=== PATIENT | female | born 1965 | race Caucasian/White ===

== ENCOUNTER 2024-12-31 08:24 | Outpatient (REF) | payer MEDICARE, MEDICAID, SELFPAY ==
--- NOTE | ~2024-12-31 | XR_ITS ---
CLINICAL HISTORY: Bilateral knee pain Three-view right knee Three-view left knee Comparison: None provided Findings: Bones intact. No dislocations. No significant arthritic change or erosions. There is a small left knee effusion. There is no right knee effusion. No radiopaque foreign body. IMPRESSION: 1. Mild narrowing of the bilateral medial knee compartments and the lateral aspects of the bilateral patellofemoral joints. There are tricompartmental osteophytes bilaterally, most pronounced within the patellofemoral joints. Line mild osteoarthritis of the bilateral knees. 2. Small left knee effusion. This document has been electronically signed by: Erendira Camacho MD on 12/31/2024 14:16:09
--- OUTSIDE RECORDS SUMMARY | 2025-01-01 08:40 | XMS_ITS | Clinical Summary ---
Author Organization [facility] Address [address] [facility] [address] [place] [address] Phone Care Team Providers Care Entry Level Manufacturing Engineer Name Role Phone Sobeida Newby Primary Care [...] B [place] & B [employer] MEDICARE PART A & [place] & B [facility] Care Teams Entry Level Manufacturing Engineer Relationship Specialty Start Date End Date Sobeida Newby PA [address] [phone] PCP - General Riprap Placing Supervisor 03/04/20 Additional Source Comments The information contained in this document represents components of the legal health record. It is not the complete legal health record.[facility]
--- OUTSIDE RECORDS SUMMARY | 2025-01-01 08:40 | XMS_ITS | Clinical Summary ---
Author Organization [facility] [address] [facility] Address [address] [place] [address] Phone Care Team Providers Care Oil Operator Name Role Phone Sobeida Newby Primary Care Provider [phone] Allergies Active Allergy Reactions Criticality Noted Date [...] Documents on File Type Date Recorded Patient Computer Security Manager Expl anation Health Care Decision (hx) 04/10/2013 AD SIGALA DIRECTIVE Health Care Decision (hx) 04/10/2013 AD SIGALA DIRECTIVE Health Care Decision (hx) 04/10/2013 AD SIGALA DIRECTIVE Health Care Decision (hx) 04/10/2013 AD SIGALA DIRECTIVE Health Care Decision (hx) 04/10/2013 AD SIGALA DIRECTIVE Health Care Decision (hx) 04/10/2013 AD SIGALA DIRECTIVE Care Teams Oil Operator Relationship Specialty Start Date End Date Sobeida Newby PA [address] [facility] [address] [place], [place] PCP - General Physician Tool Turret Lathe Set Up Operator 02/27/24
== END 2024-12-31 08:25 | disposition home or self-care (01) ==
LOC: HO.HOSX 08:24
PROVIDERS: Visit Provider Orthopaedic Surgery
DX: M17.0 Bilateral primary osteoarthritis of knee (principal); M25.561 Pain in right knee; M25.562 Pain in left knee
CPT/HCPCS: 73562; 99202

== ENCOUNTER 2024-12-31 13:38 | Outpatient (AMB) | payer MEDICARE, MEDICAID, SELFPAY ==
--- NOTE | 2024-12-31 13:54 | MHC.OFFVIS ---
Vital Signs 12/31/24 13:56 Height 5 ft 5 in Weight 163 lb BMI 27.1 Intake Visit Reasons: Bilateral knee pain Intake Note: Love is a 59 year old woman who presents with complaints of progressively worsening bilateral knee pains. She describes her pains as sharp in nature. Her pains have gotten worse over the last few years in spite of continued non operative treatments. She has had cortisone injections in the past which gave her minimal relief. The patient states that she was recently diagnosed with glaucoma and was instructed not to have further cortisone injections. She has not had a viscosupplementation injection. She has failed the last 3 months of conservative treatment which has included Tylenol, anti-inflammatory medicines, a home exercise program and physical therapy exercises. At this point her bilateral knee pains are interfering with her activities of daily living and her ability to sleep well through the night. The patient wishes to hold off on surgery if at all possible. Allergies pregabalin (From Lyrica) Allergy (Intermediate, Verified 12/31/24 14:01) Depression cipro Allergy (Severe, Uncoded 12/31/24 14:01) Fainting Medication List - Last Reconciled 12/31/24 by Barron Rosario MD atorvastatin 20 mg PO DAILY bupropion HCl SR 200 mg PO DAILY cetirizine 10 mg PO DAILY levothyroxine 88 mcg PO DAILY lorazepam 0.5 mg PO DAILY PRN meloxicam 15 mg PO DAILY trazodone 50 - 150 mg PO BEDTIME PRN valacyclovir 1,000 mg PO Q12H venlafaxine ER 150 mg PO QAM [facility] Medical History (Updated 01/01/25 @ 08:09 by Barron Rosario MD) PAT (paroxysmal atrial tachycardia) Surgical History (Updated 12/31/24 @ 14:03 by SARKIS Lux) H/O cardiac ablation Hx of carpal tunnel repair Social History (Updated 12/31/24 @ 14:02 by SARKIS Lux) Current occupational status: disabled Current occupation: right hand Physical Exam Vital Signs: BMI result Body Mass Index 27.1 Const Other: Well-nourished well-developed very friendly female awake alert and oriented x3 in no acute distress Extrem Other: Bilateral lower extremity examination shows good capillary refill, no skin lesions noted, normal sensation light touch Bilateral knee examination shows minimal effusions, palpable crepitus with range of motion, pain with range of motion, range of motion from -3 degrees to 115 degrees, no instability Results Reviewed Results Reviewed: X-rays of the patient's bilateral knee show joint space narrowing, subchondral sclerosis, no acute bony abnormalities Assessment & Plan Assessment & Plan (1) Bilateral knee pain: Code(s): M25.561 - Pain in right knee; M25.562 - Pain in left knee Category: Medical (2) Osteoarthritis of left knee: Code(s): M17.12 - Unilateral primary osteoarthritis, left knee Category: Medical (3) Osteoarthritis of right knee: Code(s): M17.11 - Unilateral primary osteoarthritis, right knee Category: Medical Plan Ms. Gimenez presents with bilateral knee pains due to osteoarthritis. I had a lengthy discussion with the patient regarding the treatment options. She wishes to hold off on surgery if at all possible. I agree with this plan. I will see if the patient's insurance company will cover a viscosupplementation injection, such as Durolane, for both of her knees. I will see her back once the injections are available. Feel free to call me at any time should questions regarding her orthopedic management arise. Thank you very much for asking me to see this very friendly patient. I spent 22 minutes in reviewing the patient's records and imaging studies, seeing the patient and documenting in the medical record. Orders: Orders XR Knee Florentin 3V 12/31/24 M25.561 - Pain in right knee, M25.562 - Pain in left knee Coding Level of Care Code New Pt Level 3 (99889) Complex EM visit Add On G2211 Diagnoses Bilateral knee pain M25.561; M25.562 Osteoarthritis of left knee M17.12 Osteoarthritis of right knee M17.11
[2024-12-31 13:56] VITALS: BMI 27.1
--- OUTSIDE RECORDS SUMMARY | 2024-12-31 17:15 | XMS_ITS | Clinical Summary ---
Author Organization [facility] Address [address] [facility] [address] [place] [address] Phone Care Team Providers Care Maxillofacial Prosthodontist Name Role Phone Sobeida Newby Primary Care Provi francesca Allergies Active Allergy Reactions Criticality Noted Date Comments Ciprofloxacin Lactate Syncope High 03/23/2020 Faint Codeine High 03/23/2020 Throwing up Pregabalin High 03/23/2020 Depressed Medications dextroamphetam ine-amphetamin e (ADDERALL XR) 25 MG 24 hr capsule amphetamine/dextr oamphetamine 25 mg cp24 Active buPROPion (WELLBUTRIN SR) 200 MG SR 12 hr tablet bupropion hcl sr 200 mg tb12 Active levothyroxine (SYNTHROID) 75 MCG tablet levothyroxine sodium 75 mcg tabs Active traZODone (DESYREL) 150 MG tablet trazodone hcl 100 mg tabs Active venlafaxine HCl (VENLAFAXINE ORAL) venlafaxine hcl er 150 mg cp24 Active atorvastatin (LIPITOR) 20 MG tablet atorvastatin 20 mg tablet Active Active Problems No known active problems Family History Medical History Relation Comments Glaucoma Maternal Grandmother Relation Status Comments Maternal Grandmother Social History Tobacco Use Types Packs/Day Years Used Date Smoking Tobacco: Never Smokeless Tobacco: Never Alcohol Use Standard Drinks/Week Comments Yes 0 (1 standard drink = 0.6 oz pur e alcohol) Education Answer Date Recorded Are you interested in more education? Not on abhijit e 07/13/2022 Are you concerned about learning? Not on file 07/13/2022 No 07/13/2022 No 07/13/2022 Digital Access Answer Date Recorded No 08/11/2022 No 08/11/2022 No 08/11/2022 Reliable internet access at home? Not on file 08/11/2022 Device with a working camera? Not on file Comments Unknown Sex and Gender Information Value Date Recorded Sex Assigned at Not on file Legal Sex Female 9:14 AM EST Gender Identity Not on file Sexual Orientation Not on file Plan of Treatment Health Maintenance Due Date Last Done Comments LIPID PANEL 1965 TSH LEVEL 1965 DEPRESSION SCREENING 1977 HEPATITIS C SCREENING 09/28/1983 HIV ONE-TIME SCREENING (18-65 YEARS) 09/28/1983 PAP SMEAR 1986 MAMMOGRAM 2005 COLOGUARD 2010 COLONOSCOPY 2010 COLORECTAL CANCER SCREENING 2010 FIT TEST 2010 FOBT 2010 SIGMOIDOSCOPY 2010 VIRTUAL COLONOSCOPY 2010 PNEUMOCOCCAL VACCINES (50+ years) (2 of 2 - PCV) 09/28/2015 12/21/2009 ZOSTER VACCINES (1 of 2) 09/28/2015 INFLUENZA VACCINE (#1) 2024 , 12/11/2019, 01/09/2018, Additional history exists COVID-19 VACCINE (2024- season) 2024 04/08/2021, 05/29/2020, 05/06/2020 Adult Td,Tdap Booster 05/15/2026 05/15/2016, 008 RSV VACCINE (1 - 1-dose 75+ series) 2040 HIB VACCINES Aged Out 01/02/2019 No longer eligi ble based on patient's age to complete this topic SMOKING STATUS SCREENING (Once After 26 Yrs) Completed 12/20/2021 HEPATITIS A VACCINES Aged Out No long er eligible based on patient's age to complete this topic MENINGOCOCCAL VACCINES (ACWY) Aged Out No longer eligible based on patient's age to complete this topic MENINGOCOCCAL VACCINES (B) Aged Out N o longer eligible based on patient's age to complete this topic Medical Devices Not on file Insurance MEDICARE PART A & [place] & B [employer] MEDICARE PART A & [place] & B [facility] Care Teams Maxillofacial Prosthodontist Relationship Specialty Start Date End Date Sobeida Newby PA [address] [phone] PCP - General Kitchen Utility Associate 03/04/20 Additional Source Comments The information contained in this document represents components of the legal health record. It is not the complete legal health record.[facility]
--- OUTSIDE RECORDS SUMMARY | 2024-12-31 17:15 | XMS_ITS | Patient Health Record ---
Author Organization [facility] Address [address] [facility] [address] [place] [address] Care Team Providers Care Business Process Coordinator Name Role Phone KARSTEN LENY Primary Care Provider Kat Catalan Unavailable [phone] Allergies Allergen (clinical drug ingredient) Drug/Non Drug Allergy documented on EMR Reaction Allergy Type Onset Date Status CIPROFLOXIN (uncoded) FAINT Allergy Active codeine CODEINE Unknown Drug Allergy Active Reason For Referral No Information Medications Medication SIG (Take, Route, Frequency, Duration) Notes Start Date End Date Status Ferrous Sulfate 325 (65 Fe) MG 1 tablet Orally Once a day; Duration: 30 day(s) 12/10/2014 Active Effexor XR 100MG 1 ORAL daily; Durati on: -3 Kade-MJ 01/17/2012 Active Levoxyl 75MCG 1 ORAL DAILY; Durati on: -3 Kade-MJ 05/09/2011 Active traZODone HCl 100 MG 1 tablet at bedtime Orally Once a day Active Wellbutrin XL 200MG 1 ORAL daily; Durati on: -3 Kade-MJ 01/17/2012 Active Problems Problem Type SNOMED Code ICD Code Onset Dates Problem Status W/U Status Risk Notes Problem Hypothyroidism (69000022) Unspecified hypothyroidism (244.9) Active confirmed Problem Paroxysmal tachycardia (96905792) Unspecified paroxysmal tachycardia (427.2) Active confirmed Problem Premenstrual tension syndrome (31426576) Premenstrual tension syndromes (625.4) Active confirmed Problem Irregular menstrual cycle (80346753) Irregular menstrual cycle (626.4) Active confirmed Major Plan Of Treatment Pending Test Test Name Order Date FSH, Serum 12/09/2014 CBC 12/09/2014 Ultrasound : Pelvic 12/09/2014 Insurance Providers Payer Name Payer Address Payer Phone Subscriber Number Group Number Insured Name Patient Relationship to Insured Coverage Start Date Coverage End Date [facility] [address] [place] [address] [id number] [place] CERV[employer] Self - patient is the insured Medical (General) History Medical History History ICD Code Irregular menstrual cycle 626.4 Premenstrual tension syndromes 625.4 Unspecified paroxysmal tachycardia 427.2 Unspecified hypothyroidism 244.9 Surgical History Surgery Date(Month/Year) carpal tunnel repair x 2 eye surgery as
--- OUTSIDE RECORDS SUMMARY | 2024-12-31 17:15 | XMS_ITS | Clinical Summary ---
Author Organization [facility] [address] [facility] Address [address] [place] [address] Phone Care Team Providers Care Training And Quality Manager Name Role Phone Sobeida Newby Primary Care Provider [phone] Allergies Active Allergy Reactions Criticality Noted Date Comments Ciprofloxacin-Hydrocortisone 019 Codeine 07/18/2018 Pregabalin 07/18/2018 Medications levothyroxine sodium (LEVOXYL ORAL) Take 0.75 mcg by mouth. Active atorvastatin calcium (ATORVASTATIN ORAL) Take by mouth. Active buPROPion SR (WELLBUTRIN SR) 200 mg 12 hr tablet Take 1 tablet (200 mg total) by mouth 2 (two) times a day. Active venlafaxine 150 mg 24 hr tablet Take by mouth. Active traZODone (DESYREL) 150 mg tablet Take 1 tablet (150 mg total) by mouth at bedtime. Active MULTIVITAMIN ORAL Take by mouth. Active ibuprofen (MOTRIN ORAL) Take by mouth. Active acetaminophen (TYLENOL ORAL) Take by mouth. Active dicyclomine (BENTYL) 10 mg capsuleIndication s:Irritable bowel syndrome with both constipation and diarrhea,LLQ pain Take 1 capsule (10 mg total) by mouth 4 (four) times a day if needed (abd pain). 60 capsule 11 4 03/16/20 25 Active Active Problems Problem Noted Date Diagnosed Date Hx of adenomatous colonic polyps 03/16/2024 Irritable bowel syndrome with constipation 03/16 Irritable bowel syndrome wit h both constipation and diarrhea 03/16/2024 LLQ pain 03/16/2024 Depression 07/19/2018 Hypercholesterolemia 07/19/2018 Hypothyroidism 07/19/2018 Rhinitis, allergic 07/19/2018 Family History Medical History Relation Name Comments Melanoma Father Relation Name Status Comments Father Social History Tobacco Use Types Packs/Day Years Used Date Smoking Tobacco: Former Smokeless Tobacco: Never Comments Unknown Sex and Gender Information Value Date Recorded Sex Assigned at Female 03/16/2024 8:49 AM EST Legal Sex Female 4:22 AM EST Gender Identity Female 03/16/2024 8:49 AM EST Sexual Orientation Not on file Obstetrics History Last Filed Vital Signs Vital Sign Reading Time Taken Comments Blood Pressure - - Pulse - - Temperature - - Respiratory Rate - - Oxygen Saturation - - Inhaled Oxygen Concentration - - Weight 74.4 kg (164 lb) 03/16/2024 7:44 AM EST Height 167.6 cm (5' 6 ) 03/16/2024 7:44 AM EST Body Mass Index 26.47 03/16/2024 7:44 AM EST Plan of Treatment Health Maintenance Due Date Last Done Comments Hepatitis A Vaccines (1 of 2 - Risk 2-dose series) 1984 Hepatitis B Vaccines (1 of 3 - 19+ 3-dose series) 1984 Cervical Cancer Screening: Pap Smear 1986 Pneumococcal Vaccine: 50+ Years (2 of 2 - PCV) 12/21/2010 12/21/2009 RSV Immunization Adult Patients (1 - Risk 50-74 years 1-dose series) 09/28/2015 Breast Cancer Screening 12/06/2021 12/07/2019 Zoster Vaccines (2 of 2) 03/23/2022 01/26/2022 Cholesterol Screening (Lipid Panel) 12/25/2023 HIV Screening 12/25/2023 Hepatitis C Screening 12/25/2023 Medicare Annual Wellness Visit 12/25/2023 Social Influencers of Health Screening 12/25/2023 Depression Screening 03/18/2024 COVID-19 Vaccine ( season) 2024 01/26/2022, 04/08/2021, 05/29/2020, Additional history exists Influenza Vaccine (#1) 2024 , 01/26/2022, 11/23/2020, Additional history exists DTaP,Tdap,and Td Vaccines (4 - Td or Tdap) 05/22/2032 05/22/2022, 05/15/2016, 03/18/2007 Colorectal Cancer Screening: Colonoscopy 08/26/2033 08/27/2023 HIB Vaccines Aged Out 01/02/2019 No longer eligi ble based on patient's age to complete this topic HPV Vaccines Aged Out No longer eligi ble based on patient's age to complete this topic IPV Vaccines Aged Out No longer eligi ble based on patient's age to complete this topic MMR Vaccines Aged Out No longer eligi ble based on patient's age to complete this topic Meningococcal ACWY Vaccine Aged Out N o longer eligible based on patient's age to complete this topic Meningococcal B Vaccine Aged Out No l onger eligible based on patient's age to complete this topic RSV Immunization Patients Under 20 months Aged Out No longer eligible based on patient's age to complete this topic Varicella Vaccines Aged Out No longer eligible based on patient's age to complete this topic Procedures Procedure Name Priority Date/Time Associated Diagnosis Comments COLONOSCOPY Routine 08/27/2023 3:35 PM EDT from Last 3 Months or Most Recently Relevant to Health Maintenance Results * COLONOSCOPY (08/27/2023 3:35 PM EDT) Anatomical Region Laterality Modality Endoscopy Historical Provider GI~PROCEDURE ORDERABLES F inal Result from Last 3 Months or Most Recently Relevant to Health Maintenance Insurance MEDICARE MEDICAID - [place] Advance Directives Documents on File Type Date Recorded Patient Pile Driver Operator Barge Mounted Expl anation Health Care Decision (hx) 04/10/2013 AD SIGALA DIRECTIVE Health Care Decision (hx) 04/10/2013 AD SIGALA DIRECTIVE Health Care Decision (hx) 04/10/2013 AD SIGALA DIRECTIVE Health Care Decision (hx) 04/10/2013 AD SIGALA DIRECTIVE Health Care Decision (hx) 04/10/2013 AD SIGALA DIRECTIVE Health Care Decision (hx) 04/10/2013 AD SIGALA DIRECTIVE Care Teams Training And Quality Manager Relationship Specialty Start Date End Date Sobeida Newby PA [address] [facility] [address] [place], [place] PCP - General Physician Manager Medical Device 02/27/24
== END 2024-12-31 14:18 | disposition home or self-care (01) ==
LOC: HO.HOS 13:39
PROVIDERS: Visit Provider Orthopaedic Surgery
DX: M25.561 Pain in right knee (principal); M25.562 Pain in left knee; M17.0 Bilateral primary osteoarthritis of knee
CPT/HCPCS: 99203; G2211

== ENCOUNTER → 2024-12-31 13:42 | Outpatient (BNV) | payer MEDICARE, MEDICAID, SELFPAY | PROVIDERS: Visit Provider Radiology Diagnostic Radiology | DX: M17.0 Bilateral primary osteoarthritis of knee (principal); M25.762 Osteophyte, left knee; M25.761 Osteophyte, right knee; M25.461 Effusion, right knee; M25.462 Effusion, left knee | CPT/HCPCS: 73562 ==

== ENCOUNTER 2025-01-11 11:22 | Outpatient (AMB) | payer MEDICARE, MEDICAID, SELFPAY ==
--- NOTE | 2025-01-11 11:25 | MHC.OFFVIS ---
Intake Visit Reasons: INJ B/L Durolane Intake Note: Love is a 59 year old woman who presents with complaints of progressively worsening bilateral knee pains. She describes her pains as sharp in nature. Her pains have gotten worse over the last few years in spite of continued non operative treatments. She has had cortisone injections in the past which gave her minimal relief. The patient states that she was recently diagnosed with glaucoma and was instructed not to have further cortisone injections. She has not had a viscosupplementation injection. She has failed the last 3 months of conservative treatment which has included Tylenol, anti-inflammatory medicines, a home exercise program and physical therapy exercises. At this point her bilateral knee pains are interfering with her activities of daily living and her ability to sleep well through the night. The patient wishes to hold off on surgery if at all possible. Allergies pregabalin (From Lyrica) Allergy (Intermediate, Verified 01/11/25 11:32) Depression codeine Adverse Reaction (Severe, Verified 01/11/25 11:32) Vomiting cipro Allergy (Severe, Uncoded 01/11/25 11:32) Fainting Medication List - Last Reconciled 01/11/25 by Barron Rosario MD atorvastatin 20 mg PO DAILY bupropion HCl SR 200 mg PO DAILY cetirizine 10 mg PO DAILY levothyroxine 88 mcg PO DAILY lorazepam 0.5 mg PO DAILY PRN meloxicam 15 mg PO DAILY trazodone 50 - 150 mg PO BEDTIME PRN valacyclovir 1,000 mg PO Q12H venlafaxine ER 150 mg PO QAM PFSH Medical History (Updated 01/11/25 @ 11:33 by SARKIS Bravo) Osteoarthritis of left knee Osteoarthritis of right knee PAT (paroxysmal atrial tachycardia) Surgical History (Updated 12/31/24 @ 14:03 by SARKIS Lux) H/O cardiac ablation Hx of carpal tunnel repair Social History Current occupational status: disabled Current occupation: right hand Physical Exam Const Other: Well-nourished well-developed very friendly female awake alert and oriented x3 in no acute distress Extrem Other: Bilateral knee examination shows minimal effusions, palpable crepitus with range of motion, pain with range of motion, no instability Office Procedures AMB Joint Injection/Aspiration Joint Injection/Aspiration Primary Site: right knee Prep: site was prepped using aseptic technique Injected: 60 mg of (Durolane viscosupplementation), with 4 mL of and 1% plain lidocaine Procedure: The patient tolerated the procedure well Coding 27763 - Large joint Procedure code (CPT) selection complete AMB Joint Injection/Aspiration Joint Injection/Aspiration Primary Site: left knee Prep: site was prepped using aseptic technique Injected: 60 mg of (Durolane viscosupplementation), with 4 mL of and 1% plain lidocaine Procedure: The patient tolerated the procedure well Coding 20377 - Large joint Procedure code (CPT) selection complete Results Reviewed Results Reviewed: X-rays of the patient's bilateral knees taken previously show joint space narrowing, subchondral sclerosis, no acute bony abnormalities Assessment & Plan Assessment & Plan (1) Osteoarthritis of left knee: Code(s): M17.12 - Unilateral primary osteoarthritis, left knee Category: Medical (2) Osteoarthritis of right knee: Code(s): M17.11 - Unilateral primary osteoarthritis, right knee Category: Medical Plan Ms. Gimenez presents with bilateral knee pains due to osteoarthritis. The risks and benefits of bilateral knee Durolane viscosupplementation injections were discussed at length with the patient. The patient wished to proceed. She tolerated the injections well. She will continue with her home exercise program. She will contact me prior to her follow-up appointment in 3 months should any questions or concerns arise. I spent 21 minutes in reviewing the patient's records and imaging studies, seeing the patient and documenting in the medical record. Orders: Orders AMB Joint Injection/Aspiration Today M17.12 - Unilateral primary osteoarthritis, left knee AMB Joint Injection/Aspiration Today M17.11 - Unilateral primary osteoarthritis, right knee Coding Level of Care Code Est Pt Level 3 (68174) Complex EM visit Add On G2211 Diagnoses Osteoarthritis of left knee M17.12 Osteoarthritis of right knee M17.11 CPT Codes Coding - 69053 Large joint: 27916 - Large joint ([id number]) Coding - 70197 Large joint: 77912 - Large joint ([id number])
--- OUTSIDE RECORDS SUMMARY | 2025-01-11 14:34 | XMS_ITS | Patient Health Record ---
Author Organization [facility] Address [address] [facility] [address] [place] [address] Care Team Providers Care Asbestos Shingle Roofer Name Role Phone KARSTEN LENY Primary Care Provider Kat Catalan Unavailable [phone] Allergies Allergen (clinical drug ingredient) Drug/Non Drug [...] Status W/U Status Risk Notes Problem Hypothyroidism (43519420) Unspecified hypothyroidism (244.9) Active confirmed Problem Paroxysmal tachycardia (95093476) Unspecified paroxysmal tachycardia (427.2) Active confirmed Problem Premenstrual tension syndrome (48347597) Premenstrual tension syndromes (625.4) Active confirmed Problem Irregular menstrual cycle (85175504) Irregular menstrual cycle (626.4) Active confirmed Major Plan Of Treatment Pending Test Test Name Order Date FSH, Serum 12/09/2014 CBC 12/09/2014 Ultrasound : Pelvic 12/09/2014 Insurance Providers Payer Name Payer Address Payer Phone Subscriber Number Group Number Insured Name Patient Relationship to Insured Coverage Start Date Coverage End Date [facility] [address] [place] [address] [phone] [id number] [place] [employer] Self - patient is the insured Medical (General) History Medical History History ICD Code Irregular menstrual cycle 626.4 Premenstrual tension syndromes 625.4 Unspecified paroxysmal tachycardia 427.2 Unspecified hypothyroidism 244.9 Surgical History Surgery Date(Month/Year) carpal tunnel repair x 2 eye surgery as
--- OUTSIDE RECORDS SUMMARY | 2025-01-11 14:34 | XMS_ITS | Clinical Summary ---
Author Organization [facility] [address] [facility] Address [address] [place] [address] Phone Care Team Providers Care Vice President Of Operations Name Role Phone Sobeida Newby Primary Care Provider [phone] Allergies Active Allergy Reactions Criticality Noted Date [...] Documents on File Type Date Recorded Patient [employer] Expl anation Health Care Decision (hx) 04/10/2013 AD SIGALA DIRECTIVE Health Care Decision (hx) 04/10/2013 AD SIGALA DIRECTIVE Health Care Decision (hx) 04/10/2013 AD SIGALA DIRECTIVE Health Care Decision (hx) 04/10/2013 AD SIGALA DIRECTIVE Health Care Decision (hx) 04/10/2013 AD SIGALA DIRECTIVE Health Care Decision (hx) 04/10/2013 AD SIGALA DIRECTIVE Care Teams Vice President Of Operations Relationship Specialty Start Date End Date Sobeida Newby PA [address] [facility] [address] [place], [place] PCP - General Physician Spoilage Worker 02/27/24
--- OUTSIDE RECORDS SUMMARY | 2025-01-11 14:34 | XMS_ITS | Data Portability ---
Author Organization [facility], Main Office Address [address] [facility] [address] [place] [address] Care Team Providers Care Traffic Ii Manager Name Role Phone MYRIAM VILLA Cold Roll Packer Sheet [employer] [facility] Referring Pr ovider LORENZA HIGGINS Pet Care Worker BRENDA GARCIA Video Editor [phone] ANGEL EATON Primary Care Provider REFUGIO ALMONTE Physical Therapist [phone] Assessment Encounter Date Assessment Date Assessment LastModified by Organization Details LastModified Time 01/15/2024 01/15/2024 Discussed with patient the signs/symptoms warranted for a return to office visit and/or an ER visit. Patient understood and agreed with the plan. Not available 01/15/2024 13:09:18 02/18/2024 02/18/2024 This service was provided using telemedicine. Patient consented to telephone visit Patient was located in the [facility]. Provider was located in the office. No other persons participated in the telemedicine visit except for the patient unless otherwise indicated here. Total time of visit was 28 minutes. Not available 02/18/2024 14:30:36 Plan of Treatment Reminders Order Date Submit Date Provider Last Modified By Organization Details Last Modified Time Details Appointments PE EST 2024 08:30A Lukas Eaton PACamden Not available Not available Not available Lab anapla sma phagoc ytophi lum + ehrlic hia chaffe ensis IgG panel, titer, serum 2023 024 CHRISTEN [facility] (Centralized Electronic Ordering - All Locations), Patient Can Go To The Location Of Their Choice, [id number] 02/11/2024 14:07:00 lipid panel, serum 2023 [facility]STEN [facility] (Centralized [facility] Ordering - All Locations), Patient Can Go To The Location Of Their Choice, [id number] 01/08/2024 06:09:58 CMP, serum or plasma 2023 CH[facility]STEN [facility] (Centralized Electronic Ordering - All Locations), Patient Can Go To The Location Of Their Choice, 01/08/2024 06:09:56 vitami n B12 + folate , serum or blood 2023 CH[facility]STEN [facility] (Centralized Electronic Ordering - All Locations), Patient Can Go To The Location Of Their Choice, 01/08/2024 06:09:59 TSH, ultra- sensit leeann, serum 2023 CHRISTEN [facility] ([facility]ized [facility] Ordering - All Locations), Patient Can Go To The Location Of Their Choice, 01/08/2024 06:09:59 urinal ysis, comple te 2023 [email or web address] [facility] ([facility] Ordering - All Locations), Patient Can Go To The Location Of Their Choice, 12/31/2023 08:47:38 Referral gyneco logist referr diomedes kent to schedu le 2023 [email or web address] Not available 06/22/2024 10:48:59 gyneco logist referr diomedes 2023 [email or web address] Not available 06/22/2024 10:48:59 sleep medici ne referr diomedes chou sed apneas , stop-b ang score 5. 2023 [facility], [address] [place] [address], [id number], 10/11/2023 11:49:08 Procedures None record ed. Surgeries None record ed. Imaging XR, abdome n, comple te - consti pation . 2023 aida [facility], [address] [place], [address], 03/03/2024 09:30:04 Medication Orders levoth yroxin e 88 mcg tablet 2023 024 [facility] #[id number], [address], [place], [id number], 02/18/2024 14:34:03 doxycy spears hyclat e 100 mg tablet 2023 024 [facility] #[id number], [address], [place], [id number], 02/10/2024 15:06:06 jeff ukast 10 mg tablet 2023 024 [facility] #38528, [address], [place], [id number], 02/18/2024 13:43:40 Pulmic ort Flexha ler 180 mcg/ac tuatio n breath activa angelia 2023 024 [facility] #[id number], [address], [place], [id number], 02/18/2024 13:44:19 Patient TargetsNo targets recorded. Patient Instructions Encounter Date Encounter Id Patient Instructions Last Modified By Organization Details Last Modified Time 10/01/2023 [id number] sleep apnea: car e instructions Not available 10/01/2023 16:17:17 12/24/2023 [id number] allergies: care instructions Not available 12/24/2023 10:19:36 cold sores: care instructions Not available 12/24/2023 10:19:36 insomnia: care instructions Not available 12/24/2023 10:19:36 preventing falls : care instructions Not available 12/24/2023 10:19:36 high cholesterol : care instructions Not available 12/24/2023 10:19:36 attention defici t hyperactivity disorder (ADHD) in adults: care instructions Not available 12/24/2023 10:19:36 Cervical Cancer Screening Not available 12/24/2023 10:19:36 sleep apnea: car e instructions Not available 12/24/2023 10:30:18 hypothyroidism: care instructions Not available 12/24/2023 10:19:36 blood in the urine: care instructions Not available 12/24/2023 10:46:18 01/15/2024 [id number] tick bite: care instructions Not available 01/15/2024 14:50:13 02/10/2024 [id number] Follow up if no improvement or if symptoms worsen. pmadden Not available 02/10/2024 15:21:56 02/18/2024 [id number] constipation: ca re instructions Not available 02/18/2024 14:33:53 hypothyroidism: care instructions Not available 02/18/2024 14:33:53 Reason for Referral Sleep Medicine Referral for Sleep apnea witnessed apneas, stop-bang score 5. Referring Physician: Angel Eaton Internal [facility], Encounter Date: 10/01/2023 Editorial Specialist Referral for Sc reening for malignant neoplasm of cervix Patient to schedule Referring Physician: Angel Eaton [facility], Encounter Date: 12/24/2023 Editorial Specialist Referral for Sc reening for malignant neoplasm of cervix Referring Physician: Angel Eaton Internal [facility], Encounter Date: 12/24/2023 Results Created Date Observation Date Name Description Value Unit Range Abnormal Flag Note LastModifiedBy Organization Detail LastModifiedTime 01/07/2001/08/2024 COMP. METAB OLIC PANEL (14) glucose 84 mg/dL 70-99 normal Not Available [facility] ([facility]) [address] [facility], [place], [address], 01/08/2024 06:09:56 01/07/20 24 01/08/2024 COMP. METAB OLIC PANEL (14) BUN 16 mg/dL 6-24 normal Not Available [facility] ([facility]) [address] [facility] [place], [address], 01/08/2024 06:09:56 01/07/20 24 01/08/2024 COMP. METAB OLIC PANEL (14) creatinine 0.77 mg/dL 0.57-1 .00 normal Not Available [facility] ([facility]) [address] [facility] [place], [address], 01/08/2024 06:09:56 01/07/20 24 01/08/2024 COMP. METAB OLIC PANEL (14) eGFR 89 mL/mi n/1.7 3 >59 normal Not Available [facility] ([facility]) [address] [facility], [place], [address], 01/08/2024 06:09:56 01/07/20 24 01/08/2024 COMP. METAB OLIC PANEL (14) BUN/creatini ne ratio 21 9-23 normal Not Available [facility] ([facility]) [address] [facility], [place], [address], 01/08/2024 06:09:56 01/07/20 24 01/08/2024 COMP. METAB OLIC PANEL (14) sodium 140 mmol/ L 134-14 4 normal Not Available [facility] ([facility]) [address] [facility] [place], [address], 01/08/2024 06:09:56 01/07/20 24 01/08/2024 COMP. METAB OLIC PANEL (14) potassium 3.3 mmol/ L 3.5-5. 2 below low normal Not Available [facility] ([facility]) [address] [facility] [place], [address], 01/08/2024 06:09:56 01/07/20 24 01/08/2024 COMP. METAB OLIC PANEL (14) chloride 99 mmol/ L 96-106 normal Not Available [facility] ([facility]) [address], [place], [address], 01/08/2024 06:09:56 01/07/2001/08/2024 COMP. METAB OLIC PANEL (14) carbon dioxide, total 23 mmol/ L 20-29 normal Not Available [facility] ([facility]) [address], [place], [address], 01/08/2024 06:09:56 01/07/2001/08/2024 COMP. METAB OLIC PANEL (14) calcium 9.6 mg/dL 8.7-10 .2 normal Not Available [facility] ([facility] [address] [place], [address], 01/08/2024 06:09:56 01/07/20 24 01/08/2024 COMP. METAB OLIC PANEL (14) protein, total 6.6 g/dL 6.0-8. 5 normal Not Available [facility] ([facility]) [address] [facility], [place], [address], 01/08/2024 06:09:56 01/07/2001/08/2024 COMP. METAB OLIC PANEL (14) albumin 4.6 g/dL 3.8-4. 9 normal Not Available [facility] ([facility]) [address] [facility] [place], [address], 01/08/2024 06:09:56 01/07/2001/08/2024 COMP. METAB OLIC PANEL (14) globulin, total 2.0 g/dL 1.5-4. 5 Not Available [facility] ([facility]) [address] [facility] [place], [address], 01/08/2024 06:09:56 01/07/2001/08/2024 COMP. METAB OLIC PANEL (14) bilirubin, total 0.4 mg/dL 0.0-1. 2 normal Not Available [facility] ([facility]) [address] [facility] [place], [address], 01/08/2024 06:09:56 01/07/2001/08/2024 COMP. METAB OLIC PANEL (14) alkaline phosphatase 88 IU/L 44-121 normal Not Available [facility] [address] [facility], [place], [address], 01/08/2024 06:09:56 01/07/2001/08/2024 COMP. METAB OLIC PANEL (14) AST (SGOT) 17 IU/L 0-40 normal Not Available [facility] ([facility]) [address] [facility] [place], [address], 01/08/2024 06:09:56 01/07/2001/08/2024 COMP. METAB OLIC PANEL (14) ALT (SGPT) 20 IU/L 0-32 normal Not Available [facility] ([facility]) [address] [facility], [place], [address], 01/08/2024 06:09:56 01/07/2001/08/2024 URINA LYSIS , COMPL ETE specific gravity <=1.00 5 1.005- 1.030 abnormal Not Available [facility] ([facility]) [address] [facility], [place], [address], 01/08/2024 06:09:57 01/07/2001/08/2024 URINA LYSIS , COMPL ETE pH 6.5 5.0-7. 5 normal Not Available [facility] ([facility]) [address] [facility], [place], [address], 01/08/2024 06:09:57 01/07/2001/08/2024 URINA LYSIS , COMPL ETE urine-color Yellow yellow Not Available [facility] ([facility]) [address] [facility] [place], [address], 01/08/2024 06:09:57 01/07/2001/08/2024 URINA LYSIS , COMPL ETE appearance Clear clear Not Available [facility] ([facility]) [address] [facility], [place], [address], 01/08/2024 06:09:57 01/07/2001/08/2024 URINA LYSIS , COMPL ETE WBC esterase 2+ negati ve abnormal Not Available [facility] ([facility]) [address] [facility], [place], [address], 01/08/2024 06:09:57 01/07/2001/08/2024 URINA LYSIS , COMPL ETE protein Negati ve negati ve/tra ce Not Available [facility] ([facility]) [address] [facility], [place], [address], 01/08/2024 06:09:57 01/07/2001/08/2024 URINA LYSIS , COMPL ETE glucose Negati ve negati ve Not Available [facility] ([facility]) [address] [facility], [place], [address], 01/08/2024 06:09:57 01/07/2001/08/2024 URINA LYSIS , COMPL ETE ketones Negati ve negati ve Not Available [facility] ([facility]) [address] [facility], [place], [address], 01/08/2024 06:09:57 01/07/2001/08/2024 URINA LYSIS , COMPL ETE occult blood Negati ve negati ve Not Available [facility] ([facility]) [address] [facility], [place], [address], 01/08/2024 06:09:57 01/07/2001/08/2024 URINA LYSIS , COMPL ETE bilirubin Negati ve negati ve Not Available [facility] ([facility]) [address] [facility], [place], [address], 01/08/2024 06:09:57 01/07/2001/08/2024 URINA LYSIS , COMPL ETE urobilinogen ,semi-qn 0.2 mg/dL 0.2-1. 0 normal Not Available [facility] ([facility]) [address] [facility], [place], [address], 01/08/2024 06:09:57 01/07/2001/08/2024 URINA LYSIS , COMPL ETE nitrite, urine Negati ve negati ve Not Available [facility] ([facility]) [address] [facility], [place], [address], 01/08/2024 06:09:57 01/07/2001/08/2024 URINA LYSIS , COMPL ETE microscopic examination See below: Micro scopi c was indic ated and was perfo rmed. Not Available [facility] ([facility]) [address] [facility], [place], [address], 01/08/2024 06:09:57 01/07/2001/08/2024 URINA LYSIS , COMPL ETE WBC 11-30 /hpf 0 - 5 abnormal Not Available [facility] ([facility]) [address] [facility], [place], [address], 01/08/2024 06:09:57 01/07/20 24 01/08/2024 URINA LYSIS , COMPL ETE RBC None seen /hpf 0 - 2 Not Available [facility] ([facility]) [address] [facility], [place], [address], 01/08/2024 06:09:57 01/07/2001/08/2024 URINA LYSIS , COMPL ETE epithelial cells (non renal) 0-10 /hpf 0 - 10 Not Available [facility] ([facility]) [address] [place], [address], 01/08/2024 06:09:57 01/07/20 24 01/08/2024 URINA LYSIS , COMPL ETE epithelial cells (renal) [employer]ING [employer]EM[employer] Not Available [facility] ([facility]) [address] [facility], [place], [address], 01/08/2024 06:09:57 01/07/2001/08/2024 URINA LYSIS , COMPL ETE casts None seen /lpf none seen Not Available [facility] ([facility]) [address] [facility], [place], [address], 01/08/2024 06:09:57 01/07/2001/08/2024 URINA LYSIS , COMPL ETE cast type [employer] Not Available [facility] ([facility]) [address] [facility], [place], [address], 01/08/2024 06:09:57 01/07/2001/08/2024 URINA LYSIS , COMPL ETE crystals [employer]EM[employer] Not Available [facility] ([facility]) [address] [facility], [place], [address], 01/08/2024 06:09:57 01/07/2001/08/2024 URINA LYSIS , COMPL ETE crystal type [employer]ING [employer]EM[employer] Not Available [facility] [address] [facility], [place], [address], 01/08/2024 06:09:57 01/07/2001/08/2024 URINA LYSIS , COMPL ETE mucus threads [employer] Not Available [facility] ([facility] [address] [facility], [place], [address], 01/08/2024 06:09:57 01/07/2001/08/2024 URINA LYSIS , COMPL ETE bacteria None seen none seen/f ew Not Available [facility] ([facility]) [address] [facility], [place], [address], 01/08/2024 06:09:57 01/07/20 24 01/08/2024 URINA LYSIS , COMPL ETE yeast [employer] Not Available [facility] ([facility]) [address] [facility], [place], [address], 01/08/2024 06:09:57 01/07/2001/08/2024 URINA LYSIS , COMPL ETE trichomonas [employer] Not Available [facility] ([facility] [address] [facility], [place], [address], 01/08/2024 06:09:57 01/07/2001/08/2024 URINA LYSIS , COMPL ETE comment [employer] Not Available [facility] ([facility]) [address] [facility], [place], [address], 01/08/2024 06:09:57 01/07/2001/08/2024 URINA LYSIS , COMPL ETE microscopic examination [employer] Not Available [facility] [address] [facility], [place], [address], 01/08/2024 06:09:57 01/07/2001/08/2024 LIPID PANEL WITH LDL/H DL RATIO cholesterol, total 194 mg/dL 100-19 9 normal Not Available [facility] ([facility]) [address] [facility], [place], [address], 01/08/2024 06:09:58 01/07/2001/08/2024 LIPID PANEL WITH LDL/H DL RATIO triglyceride s 112 mg/dL 0-149 normal Not Available [facility] ([facility] [address] [place], [address], 01/08/2024 06:09:58 01/07/2001/08/2024 LIPID PANEL WITH LDL/H DL RATIO HDL cholesterol 46 mg/dL >39 normal Not Available [facility] [address] [facility], [place], [address], 01/08/2024 06:09:58 01/07/20 24 01/08/2024 LIPID PANEL WITH LDL/H DL RATIO VLDL cholesterol donita 20 mg/dL 5-40 Not Available [facility]) [address] [facility], [place], [address], 01/08/2024 06:09:58 01/07/20 24 01/08/2024 LIPID PANEL WITH LDL/H DL RATIO LDL chol calc ([facility]) 128 mg/dL 0-99 above high normal Not Available [facility] ([facility]) [address] [facility], [place], [address], 01/08/2024 06:09:58 01/07/20 24 01/08/2024 LIPID PANEL WITH LDL/H DL RATIO LDL calc comment: [employer]ING [employer]EM[employer] Not Available [facility]) [address] [facility], [place], [address], 01/08/2024 06:09:58 01/07/2001/08/2024 LIPID PANEL WITH LDL/H DL RATIO LDL/HDL ratio 2.8 ratio 0.0-3. 2 LDL/H DL Ratio Men Women 1/2 Avg.R isk 1.0 1.5 Avg.R isk 3.6 3.2 2X Avg.R isk 6.2 5.0 3X Avg.R isk 8.0 6.1 Not Available [facility] ([facility]) [address] [facility], [place], [address], 01/08/2024 06:09:58 01/07/20 24 01/08/2024 VITAM IN B12 AND FOLAT E vitamin B12 589 pg/mL 232-12 45 normal Not Available [facility] ([facility]) [address] [facility], [place], [address], 01/08/2024 06:09:59 01/07/2001/08/2024 VITAM IN B12 AND FOLAT E folate (folic acid), serum >20.0 NG/mL >3.0 A serum folat e gita ntrat ion of less than 3.1 ng/mL is consi dered to repre sent clini donita defic iency . Not Available [facility] ([facility]) [address] [facility], [place], [address], 01/08/2024 06:09:59 01/07/2001/08/2024 TSH TSH 4.170 uIU/m L 0.450- 4.500 normal Not Available [facility] ([facility]) [address] [facility], [place], [address], 01/08/2024 06:09:59 02/05/2002/06/2024 POTAS SIUM, HEPAR IN PLASM A potassium, heparin plasma 3.9 mmol/ L 3.5-5. 2 Not Available [facility] ([facility]) [address] [facility], [place], [address], 02/06/2024 14:07:26 02/05/20 24 02/06/2024 MAGNE SIUM magnesium 2.3 mg/dL 1.6-2. 3 normal Not Available [facility] ([facility]) [address] [facility], [place], [address], 02/06/2024 14:07:27 02/05/2002/05/2024 TICK- BORNE DISEA SE AB PROFI LE result comments: Commen t Antib tory titer s may be negat leeann in the first 7-10 days of illne ss. A four- fold rise in IgG antib tory titer s for Babes ia micro ti, Anapl asma phago cytop hilum , and/o r Ehrli miriam chaff eensi s in paire d sampl es (acut e and conva lesce nt) suppo rts the diagn osis of babes iosis , anapl asmos is, and/o r ehrli chios is, respe ctive ly. Not Available [facility] ([facility]) [address] [facility], [place], [address], 02/11/2024 14:07:00 02/05/20 24 02/06/2024 TICK- BORNE DISEA SE AB PROFI LE lyme total antibody natalie Negati ve negati ve Lyme antib odies not detec angelia. Refle x testi ng is not indic ated. No labor atory evide nce of infec tion with B. burgd orfer i (Lyme disea se). Negat leeann resul ts may occur in patie nts recen tly infec angelia (less than or equal to 14 days) with B. burgd orfer i. If recen t infec tion is suspe cted, repea t testi ng on a new sampl e colle cted in 7 to 14 days is recom sukhwinder d. Not Available [facility] ([facility]) [address] [place], [address], 02/11/2024 14:07:00 02/05/20 24 02/07/2024 TICK- BORNE DISEA SE AB PROFI LE babesia microti IgG <1:10 neg:<1 :10 Not Available [facility] ([facility]) [address] [facility], [place], [address], 02/11/2024 14:07:00 02/05/20 24 02/07/2024 TICK- BORNE DISEA SE AB PROFI LE E. chaffeensis IgG Negati ve neg:<1 :64 Not Available [facility] ([facility]) [address] [facility], [place], [address], 02/11/2024 14:07:00 02/05/20 24 02/11/2024 TICK- BORNE DISEA SE AB PROFI LE A. phagocytophi lum IgG Negati ve neg:<1 :64 Not Available [facility] ([facility] [address] [place], [address], 02/11/2024 14:07:00 11/27/19 24 11/27/2023 home sleep study No observ ation record ed. [email or web address] [facility] [address] [facility], [place], [address], 01/30/2024 15:09:55 02/11/20 24 02/11/2024 US, duple x, pelvi s, compl ete No observ ation record ed. [email or web address] [facility] [address] [place], [address], 02/12/2024 09:33:46 02/11/20 24 02/11/2024 US, pelvi s, trans abdom inal + trans vagin al No observ ation record ed. [email or web address] [facility] [address] [place], [address], 02/12/2024 09:34:34 03/12/20 24 02/27/2024 XR, cervi donita spine No observ ation record ed. [email or web address] [facility] [address], [place], [address], Ph [phone] 03/16/2024 09:30:19 03/16/20 24 03/16/2024 XR, abdom en, 1 view See Note [facility] , [facility] Name: TEX Walton Date of : 1965 Reason for Exam: LLQ abdomi nal pain Exam Date: 2023 [id number] EST Report Status : Final Orderi ng Provid er: BRENDA SANCHEZ PCP: VIRIDIANA EATON Histor y: Left lower quadra nt abdomi nal pain. Findin gs: AP supine views of the abdome n and pelvis . No bowel dilata tion is identi fied. There is formed fecal materi al throug hout the colon. Solid viscer al outlin es are unrema rkable . Few pelvic phlebo liths are noted. The region al skelet on is intact . IMPRES DWIGHT: Impres dwight: No signif icant abnorm ality identi fied. Shefali RIBEIRO ( ) ------ -- FINAL REPORT ------ -- Dictat ed By: Irene Molina Dictat ed Date: 2023 10:16 ET Assign ed Physic gracie: Irene Molina Review ed and Electr onical ly Signed By: Irene Molina Signed Date: 2023 10:17 ET Workst ation ID: [id number] Transc ribed By: Self Edit Transc ribed Date: 2023 10:16 ET [facility] [address] [facility], [place], [address], 03/17/2024 12:34:11 Result Notes Documentation Provider Name and Address Organization Details Recorded Time Xr, Abdomen, 1 View : See Note [facility], a member of [employer] Patient Name: TEX GIMENEZ Date of : 1965 Reason for Exam: LLQ abdominal pain Exam Date: 03/16/2024 [id number] EST Report Status: Final Ordering Provider: BRENDA GARCIA PCP: ANGEL EATON History: Left lower quadrant abdominal pain. Findings: AP supine views of the abdomen and pelvis. No bowel dilatation is identified. There is formed fecal material throughout the colon. Solid visceral outlines are unremarkable. Few pelvic phleboliths are noted. The regional skeleton is intact. IMPRESSION: Impression: No significant abnormality identified. Teleluis RIBEIRO ([id number]) -------- FINAL REPORT -------- Dictated By: Malini Zacarias Dictated Date: 03/16/2024 10:16 ET Assigned Physician: Malini Zacarias Reviewed and Electronically Signed By: Malini Zacarias Signed Date: 03/16/2024 10:17 ET Workstation ID: [id number] Transcribed By: Self Edit Transcribed Date: 03/16/2024 10:16 ET Angel Eaton PA-C [address] [facility] [address], [place], [address], [facility] 03/17/2024 12:34:11 Problems Name Problem SNOMED Code Status Onset Date Resolution Date Notes Provider Name and Address Organization Details Recorded Time Cobalami n deficien cy 425645115 Completed 08/19/2018 Angel Eaton PA-C [address] [facility] [address], [place], [address] , [facility] 9 09:43:51 Knee pain Completed 07/29/2017 [facility] 09:43[facility]12 Hypercho lesterol emia [id number] Completed 12/11/2019 Angel Eaton PA-C [address] [address], [place], [address] , [facility] 0 16:00:31 Iron deficien cy anemia 85526261 Completed 08/19/2018 Angel Eaton PA-C [address] [address], [place], [address] , [facility] 9 12:49:35 Vitamin B12 deficien cy (non anemic) 57508486 Active Lauren pearl, [facility] 0 09:26:33 Fatigue 25031240 Completed 07/29/2017 Felicia pearl, [facility] 8 09:43:30 Body mass index 25-29 - overweig ht [id number] Completed 08/19/2018 Angel Eaton PA-C [address] [address], [place], [address] , [facility] 4 10:17:55 Acute viral bronchit is [id number] Completed 05/15/2016 Miracle Hernandez [place] null, [facility] 7 14:24:58 Ecchymos is 246584590 Completed 07/29/2017 Angel Eaton PA-C [address] [address], [place], [address] , [facility] 8 13:35:45 Mood disorder due to a general medical conditio n 26252348 Completed 12/11/2019 Angel Eaton PA-C [address] [address], [place], [address] , [facility] 0 16:12:04 Allergic rhinitis [id number] Active Lauren pearl, [facility] 0 09:26:33 Memory impairme nt [id number] Active Lauren pearl, [facility] 0 09:26:33 Pain of joint 87145511 Completed 07/29/2017 Felicia pearl, [facility] 8 09:43:19 Inflamma tion of sacroili ac joint 76447788 Completed 08/19/2018 Angel Eaton PA-C [address], [place], [address] , [facility] 9 09:50:39 Lateral epicondy litis 047605989 Completed 08/19/2018 Angel Eaton PA-C [address], [place], [address] , [facility] 9 12:43:58 Hypersom chandana 03389563 Completed 12/11/2019 Angel Eaton PA-C [address], [place], [address] , [facility] 0 16:12:31 Wheezing 33877905 Completed 07/29/2017 Felicia pearl, [facility] 8 09:43:25 Acute sinusiti s 93167839 Completed 05/15/2016 JACKIE Crowley, [facility] 7 14:24:54 Pain in female pelvis 957118120 Completed 12/24/2023 Angel Eaton PA-C [address], [place], [address] , [facility] 4 09:31:50 Uterine leiomyom a 93035447 Active surgical ly removed. Angel Eaton PA-C [address], [place], [address] , [facility] 2 14:43:16 Postmeno pausal bleeding 60399356 Completed 12/24/2023 Angel Eaton PA-C [address], [place], [address] , [facility] 4 09:32:07 Hyperlip idemia 09401004 Active Lauren pearl [facility] 0 09:26:33 Child attentio n deficit disorder 029747053 Completed 201301/13/2015 RECORDED 09/24/19 14 1:13PM BY CATRACHITO CADENA MA, OFFICE VISIT JACKIE Zavaleta [facility] 6 14:11:31 Screenin g for malignan t neoplasm of colon Completed 201310/26/2013 RECORDED 09/24/19 14 12:45PM BY CATRACHITO CADENA MA, ANNOTATI ON/ADDEN DUM JACKIE Zavaleta [facility] 6 14:11:31 Tobacco user [id number] Completed 201305/15/2016 JACKIE Crowley, [facility] 7 14:28:01 Adult health examinat ion Completed 201301/13/2015 RECORDED 09/24/19 14 1:13PM BY CATRACHITO CADENA MA, OFFICE VISIT JACKIE Zavaleta, [facility] 6 14:11:31 Insomnia 453334862 Active [address] [facility] 0 09:26:33 Overweig ht 991927006 Completed 201308/19/2018 Angel Eaton PA-C [address], [place], [address] , [facility] 9 09:30:03 Screenin g for malignan t neoplasm of cervix Completed 201301/13/2015 RECORDED 09/25/19 14 10:14AM BY MARIZOL WILD, JONASIC AL SUMMARY JACKIE Zavaleta, [facility] 6 14:11:31 Anemia 723535373 Completed 201312/11/2019 Angel SynAgileC [address], [place], [address] , [facility] 0 16:12:37 Hypothyr oidism 64353763 [facility] 11:[facility]12 Hyperlip idemia 16620417 Completed 201608/19/2018 [facility] [employer] [address], [place], [address] , [facility] 9 09:30:32 Major depressi ve disorder 757617931 Completed 201807/03/2019 Angel SynAgileC [address], [place], [address] , [facility] 0 16:53:46 Major depressi on single episode, in partial remissio n 09476365 [facility] 09:26:[facility] Atypical chest pain 170594040 Completed 201912/11/2019 [facility] [address] [facility] [address], [place], [address] , [facility] 0 16:16:49 Generali zed anxiety disorder 12738351 Active 2019 Angel SynAgileC [address], [place], [address] , [facility] 0 16:10:53 Herpes labialis 2615839 Active 2019 Angel SynAgileC [address], [place], [address] , [facility] 0 16:19:47 Blood in urine 56834480 Active 2019 Angel SynAgileC [address], [place], [address] , [facility] 0 16:51:46 Bilatera l acute angle-cl osure glaucoma [id number] 9106 Active 2020 Angel Eaton PA-C [address], [place], [address] , [facility] 1 13:42:47 Osteoart hritis of multiple joints 441451511 Active 2020 Angel Eaton PA-C [address], [place], [address] , [facility] 1 13:56:02 Glaucoma 31745545 Active 2020 closed angle with surgical interven tion. Angel Eaton PA-C [address] [facility] [address], [place], [address] , [facility] 1 11:52:58 Attentio n deficit hyperact ivity disorder , predomin antly inattent leeann type 23339367 Active 2020 Sofya Macdonald null, [facility] 1 13:32:21 COVID-19 [id number] Completed 202007/30/2023 Lilia maria [place] null, [facility] 4 10:34:00 Anti-nuc lear factor detected 637410648 Active 2021 Angel Eaton PA-C 364[address] [facility] [address], [place], [address] , [facility] 2 15:30:09 Alcohol dependen ce 02658832 Active 2021 in remissio n Angel Eaton PA-C [address], [place], [address] , [facility] 3 15:53:00 Fibromya lgia 282931932 Active 2022 Angel Eaton PA-C [address], [place], [address] , [facility] 3 13:36:38 Abnormal liver function 83467380 Active 2022 Angel Eaton PA-C [address], [place], [address] , [facility] 3 09:45:01 Allergic asthma without status asthmati cus 44697071 Active 2022 Angel Eaton PA-C [address], [place], [address] , [facility] 3 15:31:54 Osteoart hritis of knee 158164985 Active 2022 Angel Eaton PA-C [address], [place], [address] , [facility] 3 15:51:46 Hearing difficul ty 566380183 Active 2022 Angel Eaton PA-C [address], [place], [address] , [facility] 3 10:15:23 Pain of left breast 9401638376 Completed 202212/24/2023 Angel Eaton PA-C [address], [place], [address] , [facility] 4 09:31:55 Body mass index 25-29 - overweig ht 722515998 Active 2023 Angel Eaton PA-C [address], [place], [address] , [facility] 4 10:17:55 Obstruct leeann sleep apnea syndrome 44432208 Active 2023 Angel Eaton PA-C [address], [place], [address] , [facility] 4 10:30:20 Irritabl e bowel syndrome 56562944 Active 2023 mixed patern, abdomina l pain. Angel Eaton PA-C [address] [facility] [address], [place], [address] , [facility] 4 12:46:26 Problem Notes None recorded. Procedures Surgical History Date Name Laterality Status Provider Name and Address Organization Details Recorded Time 08/27/19 24 Colonoscopy completed Cathie Smith [facility] 08/27/2023 12:57:36 01/27/20 23 Most Recent Mammogram completed Cathie Smith [facility] 01/28/2023 08:55:55 01/10/20 22 intra-articular injection completed Cathiejorge alberto Smith [facility] 01/10/2022 14:40:03 02/05/20 20 Date of Last Colonoscopy completed Lauern Sinclair [facility] 02/05/2020 15:13:24 12/09/19 20 fluoroscopy guided injection of right facet joint of lumbar spine completed Lauren Sinclair [facility] 12/09/2019 10:10:17 12/07/19 20 Mammogram screening completed Portia Sauceda [facility] 12/07/2019 14:33:17 03/18/19 20 Eye Surgery completed Porsche Luz [place] [facility] 10/03/2021 14:57:08 04/19/19 19 injection completed Portia Sauceda [facility] 04/24/2018 14:17:07 03/07/20 18 Other completed Lauren Sinclair [facility] 03/07/2018 11:00:26 11/12/19 18 Hydrocortisone acetate inj completed Erendira West [facility] 11/11/2017 10:34:47 06/18/19 18 Njx interlaminar lmbr/sac completed Diana Calix [facility] 06/28/2017 14:24:14 06/13/19 18 Exc tr-ext b9+mone 0.5 cm< completed Lauren Sinclair [facility] 06/14/2017 09:26:03 04/16/19 18 Date of Last Pap Smear completed Portia Komal [facility] 07/29/2017 13:17:17 10/24/19 16 Nebulizer tx completed Angel Eaton PA-C [address], [place], [address], [facility] 10/24/2015 11:36:05 08/09/19 16 EGD completed Lauren Sinclair [facility] 08/10/2015 11:09:04 03/08/20 15 Mini-Cog Test completed Lilia pizarro [place] [facility] 03/08/2015 09:16:54 06/23/19 15 Other completed Felicia Hilario MA [facility] 06/23/2014 14:31:13 11/08/19 02 Caesarean Section completed Porsche Luz MA [facility] 10/03/2021 14:57:08 Carpal tunnel surgery completed Neha Macdonald [facility] 12/23/2020 11:29:58 Imaging Results None recorded. Procedure Notes None recorded. Medical Equipment None Reported. Allergies Allergen ID Allergen Name Allergen Category Reaction Reaction Severity Criticality Documentation Date Start Date Code Code System Note Provider Name and Address Organization Details Recorded Time 38883 codeine medicatio n vomiting severe Not available 10/09/20132013 26[address] [facility] 5 09:12:36 89965 Cipro medicatio n other severe Not available 10/09/2013 83511 3 RxNorm faint ing Joann pearl [facility] 4 15:07:08 40427 Cephalosp tiffanie (substanc e) medicatio n rash Not available Not available 10/23/20132013 30680 7003 SNOMED BARBARA Esteban [address] [facility] [address], [place], [address], [facility] 8 15:21:33 49681 Lyrica medicatio n other Not available Not available 07/29/2017 71267 1 RxNorm depre susie Hilario [place] ryanne [facility] 8 09:52:54 50779 ciproflox acin medicatio n Not available Not available Not available 09/04/2019 2551 RxNorm Laurenmery Sinclair ryanne [facility] 0 09:26:37 Medications Name Sig Start Date Stop Date Status Note LastModified by Organization Details LastModified Time bupropion hcl sr 200 mg tb12 active Not Available Not Available Not Available amphetami ne/dextro amphetami ne 25 mg cp24 active Not Available Not Available Not Available ibuprofen 800 mg tabs 05/19 completed Not Available Not Available Not Available levothyro xine sodium 75 mcg tabs active Not Available Not Available Not Available Prescript ion - Prior Authoriza tion Request 07/29 completed Not Available Not Available Not Available trazodone hcl 100 mg tabs active Not Available Not Available Not Available ferrous sulfate 325 (65 fe) mg tabs active Not Available Not Available Not Available venlafaxi ne hcl er 150 mg cp24 active Not Available Not Available Not Available fluticaso ne propionat e 50 mcg/act susp active Not Available Not Available Not Available trazodone hcl 150 mg tabs active Not Available Not Available Not Available multivita min tablet Take 1 tablet every day by oral route. active Not Available Not Available No t Available celecoxib 200 mg capsule 05/15 completed Not Available Not Available Not Available cyclobenz aprine 10 mg tablet 1 po prn 09/11 completed Not Available Not Available Not Available dextroamp hetamine- amphetami ne 7.5 mg tablet TAKE 1 TABLET BY MOUTH TWICE DAILY active Not Available Not Available No t Available venlafaxi ne ER 37.5 mg capsule,e xtended release 24 hr TAKE 1 CAPSULE BY MOUTH EVERY MORNING WITH 150MG CAPSULE active Not Available Not Available No t Available atorvasta tin 20 mg tablet TAKE 1 TABLET BY MOUTH EVERY DAY 2024 active Not Available Not Available Not Avai lable venlafaxi ne 75 mg tablet active Not Available Not Available Not Available nabumeton e 750 mg tablet 05/15 completed Not Available Not Available Not Available cetirizin e 10 mg tablet TAKE 1 TABLET BY MOUTH EVERY DAY FOR ALLERGIE S 2024 active Not Available Not Available Not Avai lable atorvasta tin 10 mg tablet Take 10 mg by oral route. 12/10 completed Not Available Not Available Not Available azithromy javi 250 mg tablet TAKE 2 TABLETS (500 MG) BY ORAL ROUTE ONCE DAILY FOR 1 DAY THEN 1 TABLET (250 MG) BY ORAL ROUTE ONCE DAILY FOR 4 DAYS 01/28 completed Not Available Not Available Not Available CombiPatc h 0.05 mg-0.14 mg/24 hr transderm al 12/10 completed Not Available Not Available Not Available ibuprofen 800 mg tablet TAKE 1 TABLET BY MOUTH THREE TIMES DAILY DIRECTED active As needed Not Available Not Available Not Available tizanidin e 4 mg tablet 1 po prn 09/11 completed Not Available Not Available Not Available valacyclo vir 1 gram tablet TAKE 1 TABLET BY MOUTH EVERY 12 HOURS FOR 10 DAYS 2024 active Not Available Not Available Not Avai lable clarithro mycin 500 mg tablet active Not Available Not Available No t Available hydrocodo ne 5 mg-acetam inophen 325 mg tablet active Not Available Not Available Not Available meloxicam 15 mg tablet TAKE 1 TABLET BY MOUTH DAILY FOR 14 DAYS 07/29 completed Not Available Not Available Not Available prednison e 20 mg tablet Take 2 tablets every day by oral route as directed for 4 days. 01/28 completed Not Available Not Available Not Available dextroamp hetamine- amphetami ne 10 mg tablet TAKE 1 TABLET BY MOUTH EVERY DAY 01/27 completed Not Available Not Available Not Available venlafaxi ne ER 150 mg capsule,e xtended release 24 hr TAKE 1 CAPSULE BY MOUTH EVERY MORNING active Not Available Not Available No t Available cyanocoba john (vit B-12) 1,000 mcg tablet Take 1 tablet every day by oral route for 30 days. 2013 active Not Available Not Available Not Avai lable Tylenol Arthritis Pain 650 mg tablet,ex tended release Take 2 tablets every 8 hours by oral route for 30 days. 2022 active Not Available Not Available Not Avai lable metronida zole 500 mg tablet TAKE 1 TABLET BY MOUTH EVERY 12 HOURS FOR 7 DAYS. DO NOT DRINK ALCOHOL. MAY TAKE WITH FOOD TO MINIMIZE ABDOMINA L DISCOMFO RT 12/23 completed Not Available Not Available Not Available Vitamin C 500 mg chewable tablet Take 1 tablet every day by oral route as directed with iron suppleme nt for 30 days. 2014 active Not Available Not Available Not Avai lable acetamino phen 500 mg tablet TK 2 TS EVERY 4 HOURS BY ORAL ROUTE DIRECTED FOR 10 DAYS 04/20 completed Not Available Not Available Not Available levothyro xine 75 mcg tablet TAKE 1 TABLET BY MOUTH DAILY ALTERNAT ING WITH 1 AND 1/2 TABLET BY MOUTH DAILY 02/17 completed Not Available Not Available Not Available venlafaxi ne 100 mg tablet active Not Available Not Available Not Available oxycodone -acetamin ophen 5 mg-325 mg tablet active Not Available Not Available Not Available levothyro xine 88 mcg tablet Take 1 tablet every day by oral route for 90 days. active Not Available Not Available No t Available hydromorp eliseo 2 mg tablet 09/11 completed Not Available Not Available Not Available prednisol one acetate 1 % eye drops,j luis pension SHAKE LIQUID AND INSTILL 1 DROP IN BOTH EYES FOUR TIMES DAILY AFTER PROCEDUR E FOR 4 DAYS THEN STOP 03/28 completed Not Available Not Available Not Available lorazepam 0.5 mg tablet TAKE 1 TABLET BY MOUTH DAILY NEEDED active Not Available Not Available No t Available dextroamp hetamine- amphetami ne ER 20 mg 24hr capsule,e xtend release active Not Available Not Available Not Available trazodone 100 mg tablet TAKE 2 TABLET BY MOUTH AT BEDTIME 10/23 completed Not Available Not Available Not Available trazodone 150 mg tablet TAKE 1 TABLET BY MOUTH EVERY NIGHT active Not Available Not Available No t Available ferrous sulfate 325 mg (65 mg iron) tablet Take 1 tablet(s ) every day by oral route for 30 days. 05/15 completed Not Available Not Available Not Available triamcino lone acetonide 55 mcg nasal spray aerosol [facility] 1 spray every day by nasal route as needed. 05/15 completed Not Available Not Available Not Available venlafaxi ne 50 mg tablet active Not Available Not Available Not Available mometason e 50 mcg/actua tion nasal spray [facility] 2 sprays every day by intranas al route for 30 days. 12/10 completed Not Available Not Available Not Available diclofena c sodium 75 mg tablet,de layed release Take 1 tablet every day by oral route for 30 days. 01/28 completed Not Available Not Available Not Available dextroamp hetamine- amphetami ne ER 10 mg 24hr capsule,e xtend release active Not Available Not Available Not Available monteluka st 10 mg tablet Take 1 tablet every day by oral route for 90 days. 02/17 completed Not Available Not Available Not Available lorazepam 1 mg tablet active prn Not Available Not Available Not Available ibuprofen 600 mg tablet Take 1 tablet 3 times a day by oral route. 09/11 completed Not Available Not Available Not Available methylpre dnisolone 4 mg tablets in a dose pack Take 1 package by oral route for 6 days. 05/15 completed Not Available Not Available Not Available dextroamp hetamine- amphetami ne ER 30 mg 24hr capsule,e xtend release active Not Available Not Available Not Available indometha javi ER 75 mg capsule,e xtended release 05/19 completed Not Available Not Available Not Available etodolac 500 mg tablet 05/15 completed Not Available Not Available Not Available fluticaso ne propionat e 50 mcg/actua tion nasal spray,j luis pension [facility] 2 sprays every day by intranas al route as directed for 30 days. 2023 active Not Available Not Available Not Avai lable doxycycli ne hyclate 100 mg tablet TAKE 1 TABLET BY MOUTH TWICE DAILY FOR 10 DAYS 02/09 completed Not Available Not Available Not Available amoxicill in 875 mg-potass ium clavulana te 125 mg tablet TAKE 1 TABLET BY MOUTH EVERY 12 HOURS FOR 7 DAYS 02/17 completed Not Available Not Available Not Available Ventolin HFA 90 mcg/actua tion aerosol inhaler INHALE 2 PUFFS BY MOUTH EVERY 4 HOURS NEEDED FOR ASTHMA active Not Available Not Available No t Available dextroamp hetamine- amphetami ne ER 25 mg 24hr capsule,e xtend release Take 1 capsule every day by oral route. 05/15 completed Not Available Not Available Not Available Adderall XR 15 mg capsule,e xtended release TAKE 1 CAPSULE BY MOUTH EVERY MORNING 10/29 completed Not Available Not Available Not Available bupropion HCl SR 200 mg tablet,12 hr sustained -release TAKE 1 TABLET BY MOUTH EVERY DAY 2024 active courtesy refill 08/20/24 Not Available Not Available Not Available Focalin XR 10 mg capsule,e xtended release active Not Available Not Available Not Available Lyrica 150 mg capsule Take 1 capsule every day by oral route for 30 days. 07/29 completed emotiona l issues Not Available Not Available Not Available Effexor 150 mg. 12/10 completed Not Available Not Available Not Available Nasonex 2 1s. 12/10 completed Not Available Not Available Not Available Strattera 80 mg capsule active Not Available Not Available Not Available Pulmicort Flexhaler 180 mcg/actua tion breath activated INHALE 1 PUFF BY MOUTH TWICE DAILY. RINSE MOUTH AFTER USE 02/17 completed Not Available Not Available Not Available peg 3350-elec trolytes 236 gram-22.7 4 gram-6.74 gram-5.86 gram solution active Not Available Not Available Not Available Black Cohosh Menopause Complex 20-250-50 (d)/20-20 0-10 mg(n) tablets Take 1 tablet every day by oral route. 01/28 completed Not Available Not Available Not Available Estroven Energy 56 mg-40 mg-130 mg tablet Take 1 tablet by oral route for 30 days. 01/28 completed Not Available Not Available Not Available Fluvirin 9182-0705 45 mcg (15 mcg x 3)/0.5 mL intramusc ular suspensio n 05/15 completed Not Available Not Available Not Available Fluvirin 45 mcg (15 mcg x 3)/0.5 mL intramusc ular suspensio n 03/06 completed Not Available Not Available Not Available Readi-Cat 2 2 % (w/v) oral suspensio n TAKE 1 BOTTLE BY MOUTH AT 8AM THE DAY OF TEST AND 2ND BOTTLE AT 230PM DIRECTED 12/23 completed Not Available Not Available Not Available Afluria Quad (PF) 60 mcg (15 mcg x 4)/0.5 mL IM syringe 01/28 completed Not Available Not Available Not Available Fluarix Quad (PF) 60 mcg (15 mcg x 4)/0.5 mL IM syringe 03/06 completed Not Available Not Available Not Available COVID-19 test specimen collectio n TEST DIRECTED TODAY 03/13 completed Not Available Not Available Not Available BinaxNOW COVID-19 Ag Self Test kit TEST DIRECTED TODAY 05/01 completed Not Available Not Available Not Available Clenpiq 10 mg-3.5 gram-12 gram/175 mL oral solution TAKE 160ML BY MOUTH DIRECTED 09/30 completed colonosc opy booked in August 2023 Not Available Not Available Not Available Vitals Date Recorded Body height Body mass index (BMI) Body weight Heart rate Oxygen saturation Oxygen saturation in Arterial blood by Pulse oximetry Body temperature Systolic And Diastolic Provider Name and Address Organization Details Last Updated DateTime 4 167.64 cm 26.3 kg/m2 10104.2 6 g 72 /min 98 % 98 % 98.6 [degF] 115/74 mm[Hg] Vianey Ascencio LPN [facility] 4 15:49:01 Date Recorded Body height Body mass index (BMI) Body weight Heart rate Oxygen saturation Oxygen saturation in Arterial blood by Pulse oximetry Body temperature Systolic And Diastolic Provider Name and Address Organization Details Last Updated DateTime 4 167.64 cm 26.3 kg/m2 40191.5 6 g 95 /min 97 % 97 % 97.9 [degF] 115/75 mm[Hg] Lilia mcgovern MA [facility] 4 10:13:30 Date Recorded Body height Body mass index (BMI) Body weight Heart rate Oxygen saturation Oxygen saturation in Arterial blood by Pulse oximetry Body temperature Systolic And Diastolic Provider Name and Address Organization Details Last Updated DateTime 4 167.64 cm 26 kg/m2 68463.3 7 g 91 /min 96 % 96 % 98.2 [degF] 129/80 mm[Hg] Lorraine Brown MA [facility] 4 14:40:22 Date Recorded Body height Body mass index (BMI) Body weight Heart rate Oxygen saturation Oxygen saturation in Arterial blood by Pulse oximetry Body temperature Systolic And Diastolic Provider Name and Address Organization Details Last Updated DateTime 4 167.64 cm 26.1 kg/m2 83782.9 6 g 95 /min 97 % 97 % 98.2 [degF] 101/66 mm[Hg] Lorraine Brown MA [facility] 4 15:04:41 Date Recorded Body height Provider Name an d Address Organization Details Last Updated DateTime 02/18/2024 167.64 cm Vianey Ascencio LPN [facility] 02/18/2024 13:41:42 Social History Question Answer Notes LastModified by Organizat ion Details LastModified Time Tobacco Smoking Status Former Smoker JACKIE Crowley, [facility] 10/09/2013 14:32:27 Do You Have An Advance Directive? No Information not available 10/03/2021 Is Blood Transfusion Acceptable In An Emergency? Yes [email or web address] Information not available 10/05/2014 What Is Your Level Of Caffeine Consumption? Occasional Diet Cola Information not available 12/24/2023 How Much Tobacco Do You Chew? None Information not available 01/13/2015 What Type Of Diet Are You Following? REGULAR Information not available 10/05/2014 Which Illicit Or Recreational Drugs Have You Used? Medical [place] Information not available 10/29/2022 When Did You Quit Smoking? 16+yearssince franklin Information not available 04/20/2020 Are There Any Guns Present In Your Home? No Information not available 10/03/2021 Hard Of Hearing Or Deaf In One Or Both Ears? No Information not available 10/03/2021 Legally Blind In One Or Both Eyes? No Information not available 10/03/2021 Live Alone Or With Others? With Others Daughter (Rachael) Information not available 10/03/2021 Do You Take Precautions To Prevent Distracted Driving? No Information not available 01/13/2015 How Often Do You Need To Have Someone Help You When You Read Instructions, Pamphlets, Or Other Written Material From Your Doctor Or Pharmacy? Always Information not available 10/03/2021 Have You Served In The ? No [email or web address] Information not available 05/15/2016 Have You Or Anyone In Your Household Had Any Of The Following Symptoms In The Last 14 Days: Sore Throat, Cough, Chills, Body Aches For Unknown Reasons, Shortness Of Breath For Unknown Reasons, Loss Of Smell, Loss Of Taste, Fever At Or Greater Than 100 Degrees Fahrenheit? No [email or web address] Information not available 12/11/2019 Are You Or Anyone In Your Household A Health Care Provider Or Emergency Responder? No Information not available 12/11/2019 To The Best Of Your Knowledge Have You Been In Close Proximity To Any Individual Who Tested Positive For COVID-19? No [email or web address] Information not available 12/11/2019 Have You Recently Traveled To A COVID-19 High Risk Area Or Gathering In The Last 10 Days? No Information not available 04/20/2020 What Was The Date Of Your Most Recent Tobacco Screening? 12/24/2023 Information not available 12/24/2023 How Many Children Do You Have? 2 [email or web address] Information not available 10/05/2014 What Is Your Current Pack Years? [email or web address] Information not available 10/03/2021 Do You Use Protection During Sex? Always [email or web address] Information not available 10/05/2014 What Is Your Relationship Status? Domestic Partner Information not available 10/03/2021 Do You Use Your Seat Belt Or Car Seat Routinely? Yes Information not available 10/03/2021 Seat Belts Used Routinely Yes Information not available 10/03/2021 Are You Sexually Active? No Information not available 10/03/2021 Smoke Alarm In Home Yes Information not available 10/03/2021 Do You Have Smoke And Carbon Monoxide Detectors In Your Home? Yes Information not available 10/03/2021 At What Age Did You Start Smoking Tobacco? 15 Information not available 10/03/2021 Are You Passively Exposed To Smoke? No Information not available 01/13/2015 How Much Tobacco Do You Smoke? No Information not available 10/03/2021 General Stress Level High Information not available 10/03/2021 Do You Use Sunscreen Routinely? Yes [email or web address] Information not available 10/05/2014 How Many Years Have You Smoked Tobacco? 10 [email or web address] Information not available 10/05/2014 Sex: Unknown Functional Status Question Answer Note LastModified by Organizat ion Details LastModified Time Do you use any illicit or recreational drugs? Yes [email or web address] Information not available 10/29/2022 Do you or have you ever used any other forms of tobacco or nicotine? No Information not available 12/24/2023 What is your level of alcohol consumption? None Information not available 10/03/2021 Do you or have you ever used smokeless tobacco? Never used smokeless tobacco Information not available 04/20/2020 Are you currently employed? No disabled/une mployed in November 2014 Information not available 04/20/2020 Are you able to walk independently without assistance or assistive devices? YESWOREST Information not available 12/24/2023 Are you able to care for yourself independently? 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 Never used electronic cigarettes Information not available 10/03/2021 What is your exercise level? Occasional [email or web address] Information not available 10/05/2014 Mental Status None recorded. Family History Relationship Description Onset Age of this Age Resolved Age Notes LastModified by Organization Details LastModified Time Mother Diabetes mellitus possib le RA [email or web address] s Not available 07/20/2015 14:11:40 Sister Diabetes mellitus [email or web address] s Not available 07/20/2015 14:11:40 Father Malignant lymphoma Not available 2021 14:57:05 Father Hypercholest erolemia [email or web address] s Not available 07/20/2015 14:11:40 Unspecified Relation Disorder of thyroid gland Not available 2021 14:57:05 Notes:No FH of colon or [facility] cancer Medical History Condition Response Depression Y Hypothyroidism Y Anemia Y Arthritis Y Allergies Y ADHD Y High Cholesterol Y Gynecological History Statement/Question Response Date of Last Pap Smear 04/16/2017 Date of Last Colonoscopy 02/05/2020 Most Recent Mammogram 01/26/2023 Obstetrics History GPAL:G 0 P 0 0 0 0 Immunizations Vaccine Type Date Status Note Provider Nam e and Address Organization Details Recorded Time Hib, unspecified formulation [facility] 09:26:29 Influenza, split virus, trivalent, preservative 0 [facility]2021 14:57:41 pneumococcal polysaccharide PPV23 0 [facility]03[facility]2021 14:57:41 Influenza, split virus, trivalent, preservative [address] [facility] 04/26/2021 14:10:54 COVID-19, mRNA, LNP-S, PF, 30 mcg/0.3 mL dose 1 [facility]26[facility]2021 14:10:54 COVID-19, mRNA, LNP-S, PF, 30 mcg/0.3 mL dose 1 [facility]26[facility]2021 14:10:54 Influenza, split virus, trivalent, preservative 7 [facility]03[facility]2021 14:57:41 COVID-19, mRNA, LNP-S, PF, 30 mcg/0.3 mL dose, roxanna-sucrose 2 [facility]2021 14:57:41 Influenza, split virus, trivalent, PF 6 completed JACKIE Wells, [facility] 10/03/2021 14:57:41 Influenza, split virus, quadrivalent, PF 8 completed JACKIE Wells, [facility] 10/03/2021 14:57:41 Tdap 8 completed JACKIE Crowley, [facility] 05/01/2022 10:10:34 Influenza, split virus, trivalent, preservative 5 completed JACKIE Crowley, [facility] 05/01/2022 10:10:34 zoster recombinant 2 completed JACKIE Crowley, [facility] 05/01/2022 10:20:55 COVID-19, mRNA, LNP-S, bivalent, PF, 50 mcg/0.5 mL or 25mcg/0.25 mL dose 2 completed JACKIE Crowley, [facility] 05/01/2022 10:20:55 Influenza, split virus, quadrivalent, PF 2 completed JACKIE Morrison, [facility] 07/30/2023 10:34:49 Tdap 3 completed BROOK Cruz, [facility] 10/01/2023 15:50:04 Tdap 7 completed Not Available [facility] 04/04/2019 02:21:56 Influenza, split virus, quadrivalent, PF 0 completed JACKIE Morrison, [facility] 12/11/2019 16:35:20 Influenza, split virus, trivalent, PF 4 completed Angel Eaton PA-C [address] [address], [place], [address], [facility] 12/24/2023 12:41:02 Past Encounters Encounter ID Performer Location Encounter Start Date Encounter Closed Date Diagnosis/Indication Diagnosis SNOMED-CT Code Diagnosis ICD10 Code Diagnosis IMO Codes Diagnosis Note [id number] Joann mark MD Main Office [address] [address] [place] [address] 10/09/2013 14:04:35 10/09/2013 15:13:11 Knee pain 99467015 seems kumar cartilage injury, mild pt to ice, rest, motrin to [facility] if not getting better [id number] [employer] [address] [facility] [place] [address] 09/23/2013 00:00:00 [id number] BARBARA Thao Main Office [address] [facility] [address] [place] [address] 11/03/2013 14:09:17 11/03/2013 15:02:46 Hypercholesterolemia 40120468 ASCVD r isk score is about 1%. we discussed she is not a candidate for statin treatment. recheck 1 yr Iron defic iency anemia 35229671 check labs in 2 [facility] Vitamin B1 2 deficiency (non anemic) 64339354 borderline levels. she might benefit from treatment, will see if improves her fatigue. pernicious anemia testing negative [id number] Dave Frazier MD Main Office [address] [address] [place] [address] 10/05/2014 15:14:13 10/05/2014 16:37:01 Adult health examination 564384913 Adult atte ntion deficit hyperactivity disorder 230515125 Hypothyroidism 27631718 Hypercholesterolemia 92913348 Iron defic iency anemia 75242310 Fatigue 89612131 Screening for malignant neoplasm of breast 272532567 Body mass index 25-29 - overweight 185088069 [id number] Angel Eaton PA-C Main Office [address] [address] [place] [address] 12/28/2014 11:13:07 12/28/2014 11:52:50 Acute viral bronchitis 251063826 J20.8 Acute viral infection . H/o exposure to Pertussis . Will cover with Zithromax. Advised to use Pro Air HFA due to chest tightening . Mucinex 1200 mg BID. Rest and fluids. Exposure t o Bordetella pertussis 104042214 Z20.818 Ecchymosis 467496969 R58 Due to fall. Able to ambulate fine. Reassured. NO further treatment necessary. [id number] Dave Frazier MD Main Office [address] [address] [place] [address] 01/13/2015 10:08:57 01/13/2015 11:45:12 Anemia 858513113 D64.9 Adult atte ntion deficit hyperactivity disorder 786639998 F90.9 Insomnia 364809349 G47.0 0 Mood disor francesca due to a general medical condition 03265564 F06.30 Allergic rhinitis 537638 04 J30.9 Hypothyroidism 93281168 E03.9 [id number] Dave Frazier MD Main Office [address] [address] [place] [address] 03/08/2015 09:06:16 03/08/2015 10:29:08 Adult attention deficit hyperactivity disorder 346010074 F90.9 Memory impairment 355926 006 R41.3 [id number] Angel Eaton PA-C Main Office [address] [place] [address] 05/31/2015 08:58:14 05/31/2015 09:57:41 Pain of joint 84555021 M25.50 Polyarthra lgia. R/o inflammato ry disease. Pt. has mother with ? RA. Labs ordered. Referral to rheumatsharon vázquez. Allergic rhinitis 127923 04 J30.9 [id number] Dave Frazier MD Main Office [address] [address] [place] [address] 06/20/2015 13:57:50 06/20/2015 15:15:36 Pain of joint 97457594 M25.50 Inflammati on of sacroiliac joint 55633142 M46.1 Lateral epicondylitis 20 9095109 M77.11 Iron defic iency anemia 20693494 D50.9 [id number] Dave Frazier MD Main Office [address] [address] [place] [address] 07/20/2015 14:02:06 07/20/2015 15:17:23 Adult attention deficit hyperactivity disorder 958200139 F90.9 Hypersomnia 46712303 G47 .10 Pain of joint 41968718 M 25.50 Plans consultati on with rheumatolo gy Lateral epicondylitis 20 6291776 M77.11 Again encouraged to use tennis elbow strap, ice. Inflammati on of sacroiliac joint 77522335 M46.1 [id number] Angel Eaton PA-C Main Office [address] [address] [place] [address] 10/24/2015 10:46:29 10/24/2015 12:07:01 Acute viral bronchitis 329825982 J20.8 Acute viral infection . Will continue cough meds OTC. Medrol dose pack , rescue inhalers . Wheezing 64826432 R06.2 Acute sinusitis 05451427 J01.31 J01.90 [id number] Angel Eaton PA-C Main Office [address] [address] [place] [address] 05/15/2016 14:07:42 05/15/2016 15:35:46 Adult health examination 390626300 Z00.00 Fatigue 65438630 R53.83 repeat labs Abnormal weight loss 267 373218 R63.4 Hyperlipidemia 30773714 E78.5 Hypothyroidism 07334668 E03.9 repeat TFTs, continue current meds. Premenstru al dysphoric disorder 121313 F32.81 Doing well with Venlafaxin e and Bupropion. Osteoarthritis 287149813 M19.90 Screening for malignant neoplasm of breast 003189043 Z12.31 Administra tion of tetanus vaccine 344200772 Z23 [id number] Dave Frazier MD Main Office [address] [address] [place] [address] 08/28/2016 13:21:15 08/28/2016 16:04:27 [id number] Angel Eaton PA-C Main Office [address] [address] [place] [address] 09/11/2016 16:03:13 09/11/2016 16:35:38 Hypercholesterolemia 73066983 E78.00 STable on current meds. Retest at next PE in April. Continue low fat diet . Hypothyroidism 81804366 E03.9 continue current meds. Sprain of ankle and/or foot 693912477 S93.401A MOtrin 800 mg TID on full stomack and RICE as discussed. [id number] Angel Eaton PA-C Main Office [address] [facility] [address] [place] [address] 03/06/2017 11:35:03 03/06/2017 12:21:22 Pain of breast 84905627 N64.4 L. breast pain and dense breasts. Will schedule diagnostic mammogram. Muscle pain 81672438 M79 .1 possible fibromyalg ia symptoms on top of multi joint OA and also might be related to lumbar disc disease, although no neurologic signs. Will consider referral to the neuro for management of fibromyalg ia. For now pt. does not wish to take any extra meds. On SNRIs and NSAIDs . Schedule f/u with pain management in march. [id number] Angel Eaton PA-C Main Office [address] [address] [place] [address] 04/10/2017 13:00:54 04/10/2017 13:42:22 Pain in finger 00659043 M79.644 Arthritis and prior surgery related pain and occasional contractur e of the R. thumb. Pt. will continue monitoring at this time. If gets any more frequent or painful, will go back to hand specilaist for cortisone injections . [id number] Angel Eaton PA-C Main Office [address] [address] [place] [address] 07/29/2017 09:40:56 07/29/2017 11:09:54 Adult health examination 442354404 Z00.00 Work on diet (low carb, low fat, well balanced, and small portions), exercise at least 30 minute walking daily, and f/u as needed. Hypothyroidism 31469978 E03.9 continue current meds as prescribed . Perimenopa usal disorder 939934552 N95.9 Take Estroven Maximum strength as prescribed . Fatigue 47995049 R53.83 Repeat labs and consider over the counter Vitamin D supplemnts , work on diet and exercise. Hyperlipidemia 92125099 E78.5 stable labs and low fat diet . continue current meds. [id number] BARBARA Esteban Main Office [address] [facility] [address] [place] [address] 10/11/2017 09:30:39 10/11/2017 10:20:54 Acute infective bronchitis 149725871 J20.8 continue proair every 4 hours as needed, short prednisone burst as directed, hydration, rest, continue nasonex daily. good improvemen t in LS after neb. Acute sinusitis 08317704 J01.90 zpak as directed, hydration, rest. [id number] BARBARA Esteban Main Office [address] [facility] [address] [place] [address] 01/28/2018 14:59:35 01/28/2018 15:50:40 Acute sinusitis 15241616 J01.90 zpak as directed, hydration, rest. Wheezing 17783561 R06.2 [id number] Indra Stevens MD Main Office [address] [place] [address] 03/22/2018 09:36:44 03/22/2018 10:05:30 Dysuria 43216429 R30.0 No evidence for a bladder infection. We will send the urine for a culture and hold off on abx. Suprapubic pain 62906455 6 R10.33 Probably related to SOIL ANALYST. Advised to make an appointmen t with her SOIL ANALYST. [id number] Joann mark MD Main Office [address] [place] [address] 05/19/2018 13:30:43 05/19/2018 14:42:23 Memory impairment 508106854 R41.3 SHort term memory issues reported. Might be secondary to multifacto rial , perimenopa usal change, stress, medication s, ADHD untreated. Pt. is requesting neuropsych reeval. Will see Dr. Thomason in [facility]. Labs are ordered. Hyperlipidemia 76090921 E78.5 stable labs and low fat diet . continue current meds. Adult atte ntion deficit hyperactivity disorder 616061093 F90.9 Premenstru al tension syndrome 22823823 N94.3 Cobalamin deficiency 190 047236 E53.8 Major depr essive disorder 770194114 F32.9 [id number] Dave Frazier MD Main Office [address] [place] [address] 08/19/2018 09:10:38 08/19/2018 10:12:16 Adult health examination 338675982 Z00.00 up to date on vaccines. Hypercholesterolemia 136 53554 E78.00 STable on current meds. Retest at next PE in April. Continue low fat diet . Hypothyroidism 58261988 E03.9 continue current meds as prescribed . History of malignant neoplasm of breast 679340216 Z85.3 Screening for malignant neoplasm of colon 858010002 Z12.11 Anemia 416170142 D64.9 Major depr essive disorder 815082339 F32.9 stable , continue current meds. Adult atte ntion deficit hyperactivity disorder 674392960 F90.9 not pharmacolo gically managed. Generalize d osteoarthritis 688551748 M15.9 F/u with pain management . Chronic pain syndrome 37 7932568 G89.4 Pt. is unable at this point to do house wk. Needs assistance with certain house tasks de to sign. limitation of joint pain and swelling. [id number] Dave Frazier MD Main Office [address] [address] 03/06/2019 15:12:51 03/06/2019 16:04:07 Chest pain 04899340 R07.9 atypical chest pain, most likely muscular in nature. NO exertional symptoms. Pt. is advised to monitor for exertional symptoms and monitor her BP at home. Reassured. EKG is normal. Will return for regular f/u next year. Allergic rhinitis 504202 04 J30.9 [id number] Dave Frazier MD Main Office [address] [address] 07/03/2019 13:26:27 07/04/2019 09:31:24 Hypothyroidism 06764393 E03.9 continue current meds as prescribed .retest labs Hypercholesterolemia 136 12576 E78.00 STable on current meds. Retest labs. Schedule PE during the summer. Insomnia 663552696 F51.0 9 continue trazodone. Major depr ession single episode, in partial remission 07944794 F32.4 continue current meds. Atypical chest pain 1025 55686 R07.89 seems intercosta l in nature and no symptoms of exertional chest discomfort . Pt. reassured. Will take Ibuprofen 800 BID for 3 days and apply heat 10 minutes 2-3 times daily when exacerbate s only. [id number] Indra Stevens MD Main Office [address] [facility] [address] [facility] [place] [address] 12/11/2019 15:24:17 12/11/2019 16:34:37 Adult health examination 659041602 Z00.00 up to date on vaccines. Screening for malignant neoplasm of colon 689551298 Z12.11 Pt. is experienci ng interm. mid abdominal discomfort . ? if related to fibroids vs intestinal spasm. Needs GI eval. Needs infl uenza immunization 338374849 Z28.3 Major depr ession single episode, in partial remission 53878722 F32.4 continue current meds. Generalize d anxiety disorder 45326041 F41.1 Hypothyroidism 86871603 E03.9 continue current meds as prescribed .retest labs Insomnia 891071678 F51.0 9 continue trazodone. Adult atte ntion deficit hyperactivity disorder 542981500 F90.9 not pharmacolo gically managed. Increased frequency of urination 304113060 R35.0 trace nonhem. blood. Otherwise normal. WE will retest at next visit. Herpes labialis 1086184 B00.1 Hyperlipidemia 17420037 E78.5 stable labs and low fat diet . continue current meds. [id number] Angel Eaton PA-C [employer] [address] [facility] [address] [place] [address] 03/28/2020 12:49:06 03/28/2020 14:37:51 Generalized anxiety disorder 75332868 F41.1 anxiety worse prompted by stress. Continue ativan PRN in addition to her bupropion and effexor. Acute angl e-closure glaucoma 43612196 H40.211 H40.212 f/u with ophthalmol ogist as scheduled. [id number] Angel Eaton PA-C Tele[facility] [facility] [address] [facility] [address] [place] [address] 04/20/2020 12:54:54 04/21/2020 13:36:46 Osteoarthritis of multiple joints 962977625 M15.9 Start turmeric and glucosamin with MSM supplement s . Try for 2 weeks for arthritis. Pt. would like to wait on taking prescripti on meds. Consider adding meloxicam or take PRN. [id number] Herve Cruz MD Main Office [address] [address] [place] [address] 12/23/2020 11:29:42 12/23/2020 12:01:17 Adult attention deficit hyperactivity disorder 331863950 F90.9 we will try smallest dose of Adderall and re evaluate in 6 weeks at her physical. Generalize d anxiety disorder 75732446 F41.1 Continue venlafaxin e and bupropion. Major depr ession single episode, in partial remission 64426819 F32.4 continue current meds. [id number] [facility] [address] [address] [place] [address] 02/20/2021 13:10:35 02/20/2021 14:14:09 COVID-19 409140044 U07.1 Continue quarantine until 48 hrs after fever resolved without antifever medication s. Continue hydration and rest, symptomati c relief with decongesta nts and nasal saline. Attention deficit hyperactivity disorder, predominantly inattentive type 36560979 F90.0 Increase to Adderall XR 15 mg daily. F/u w/i 3 m. [id number] Indra Stevens MD [facility] [address] [place] [address] [place] [address] 03/13/2021 08:57:26 03/13/2021 15:46:17 Alcohol dependence 71981219 F10.20 Newly reported ongoing alcohol dependence . Pt. will be referred to substance abuse program and recommende d to discontinu e ADD meds and lorazepam for now. Also, avoid driving under the influence. Pt. understand s her risks and will be enrolling into the program as soon as possible. [id number] Indra Stevens MD Main Office [address] [address] [place] [address] 04/26/2021 14:00:47 04/26/2021 15:07:49 Adult health examination 075654965 Z00.00 up to date on vaccines. Varicella vaccination 68 745902 Z23 Attention deficit hyperactivity disorder, predominantly inattentive type 79734446 F90.0 Continue curent dose of adderall, refer to psych for management . Generalize d anxiety disorder 77181772 F41.1 Refer to psych for management of anxiety , depression and ADHD. Continue current meds. Allergic rhinitis 173936 04 J30.9 continue otc antihistam fredy Hyperlipidemia 35738538 E78.5 Continue current meds. Repeat fasting labs. Hypothyroidism 34943720 E03.9 continue current meds as prescribed .retest labs Insomnia 000530589 F51.0 9 continue trazodone 150 mg. Major depr ession single episode, in partial remission 62930988 F32.4 continue current meds. Osteoarthr itis of multiple joints 966328970 M15.9 Continue under pain management for cortisone injections and marijuana is used for pain control. Vitamin B1 2 deficiency (non anemic) 11769094 E53.8 Blood in urine 86914925 R31.9 repeat urinalysis Alcohol dependence 60566 003 F10.20 in remission, pt. is sober for 6 weeks. Enrolled into IOP program in [facility] and has therapy 3 times weekly along with seeing her own therapist. PHQ and BENJA scores are normal today on meds. Insomnia is well controlled . [id number] Anette Kirby MD Main Office [address] [facility] [address] [place] [address] 08/29/2021 09:32:22 08/29/2021 10:07:22 Generalized anxiety disorder 26722850 F41.1 Stable. BENJA 3 continue with psych for management of anxiety, depression and ADHD. Continue current meds. meds to be taken over by psych. Insomnia 027193007 F51.0 9 continue trazodone 150 mg qhs. Major depr ession single episode, in partial remission 35894906 F32.4 Stable. PHQ-9 0. continue current meds. Attention deficit hyperactivity disorder, predominantly inattentive type 82697672 F90.0 Continue current dose of adderall. prescripti on to be taken over by psych. [id number] Anette Kirby MD Main Office [address] [facility] [address] [facility] [place] [address] 10/03/2021 14:55:38 10/03/2021 15:31:53 Headache 90496532 R51.9 sharp shooting frontal headache with activity or valsalva. Pos MOISÉS and ? family h/o brain aneurysm in aunt. Schedule brain MRA. Pt.is to avoid strenuous physical activity. [id number] Anette Kirby MD Main Office [address] [facility] [address] [place] [address] 02/07/2022 13:37:20 02/07/2022 14:04:53 Exposure to viral disease 0016775771 24428 Z20.828 RSV rapid test is negative. pt. likely with another type of mild viral infection. Recommend symptomati c relief of symptoms with otc meds. Herpes labialis 6227809 B00.1 [id number] Anette Kirby MD Main Office [address] [address] [place] [address] 05/01/2022 10:07:59 05/01/2022 11:00:23 Osteoarthritis of multiple joints 852382098 M15.9 Continue under pain management for cortisone injections and marijuana is used for pain control. Major depr ession single episode, in partial remission 27656299 F32.4 Stable. PHQ-9 . Increase in PHQ secondary to grieving and also hormonal changes still present. continue current meds. Hypothyroidism 94135219 E03.9 continue current meds , repeat TFTs. Fatigue 23685341 R53.83 Repeat labs and consider over the counter Vitamin D supplement s Vitamin D deficiency 347 89235 E55.9 Cobalamin deficiency 190 221860 E53.8 [id number] [facility] [address] [address] [place] [address] 10/29/2022 14:24:46 10/29/2022 15:56:24 Adult health examination 097040299 Z00.00 up to date on vaccines.r eferral provided for SOIL ANALYST , mammogram Abnormal l iver function 40565177 K76.89 repeat liver function test Attention deficit hyperactivity disorder, predominantly inattentive type 95120851 F90.0 Continue current med prescribed by psychiatri at [employer] [facility] Hyperlipidemia 75930982 E78.5 Continue current meds. Repeat fasting labs. Hypothyroidism 62639183 E03.9 continue current meds , repeat TFTs again due to weight gain. Weight gain 9771555 R63. 5 refer to nutritioni . Screening for malignant neoplasm of colon 306524123 Z12.11 Pt. is due for repeat colonoscop y. referral provided. Screening for malignant neoplasm of cervix 102884353 Z12.4 Screening for malignant neoplasm of breast 168647712 Z12.31 Osteoarthr itis of knee 051438189 M17.0 repeat knee xrays and refer to [facility] for cortisone injections . Herpes labialis 8129138 B00.1 uses valacyclov ir prn. Allergic a sthma without status asthmaticus 58417820 J45.909 ventolin prn Postmenopausal state [id number] 45812 Z78.0 Vitamin D deficiency 347 78449 E55.9 Blood in urine 32234748 R31.9 repeat urinalysis Fibromyalgia 967860627 M 79.7 stable Insomnia 366676238 F51.0 9 continue trazodone 150 mg qhs. Major depr ession single episode, in partial remission 90225441 F32.4 Stable on meds. F/u with psychiatri st Memory impairment 079935 006 R41.3 Short term memory issues reported. Might be secondary to multifacto rial , perimenopa usal change, stress, medication s, ADHD untreated. Have been stable since the last year. Osteoarthr itis of multiple joints 908214935 M15.9 Continue under pain management for cortisone injections and marijuana is used for pain control. Vitamin B1 2 deficiency (non anemic) 45962169 E53.8 stable by CBC in April. [id number] Anette Kirby MD Telehealt h [address] [facility] [address] [place] [address] 12/31/2022 08:38:31 12/31/2022 10:47:23 Pain of left breast [id number] N64.4 schedule L. unilat breast ultrasound . Pt. also referred for yearly mammogram. Screening for malignant neoplasm of breast 089351431 Z12.31 Hearing difficulty 65482 0000 H91.93 recommend to do debrox to clear ear wax first. If hearing decrease persist, referral will be made to ENT for audiology. [id number] Anette Kirby MD Main Office [address] [facility] [address] [facility] [place] [address] 07/30/2023 10:29:59 07/30/2023 11:08:09 Generalized anxiety disorder 05003484 F41.1 Stable. BENJA 5 continue with psych for management of anxiety, depression and ADHD. Continue current meds. meds to be taken over by psych. Major depr ession single episode, in partial remission 82796847 F32.4 Stable on meds. F/u with psychiatri st Insomnia 817134374 F51.0 9 continue trazodone 150 mg qhs. Allergic a sthma without status asthmaticus 50824030 J45.909 ventolin prn Allergic rhinitis 701384 04 J30.9 continue otc antihistam fredy Screening for malignant neoplasm of breast 413196710 Z12.31 745372 Herve Cruz MD Main Office [address] [facility] [address] [place] [address] 10/01/2023 15:20:20 10/01/2023 16:23:47 Sleep apnea 42268215 G47.30 elevated stop-bang score and witnessed apneas. recommend sleep medicine referral. Pt. will work on weight loss. desirably to lose 10 more lbs via exercise and low calorie diet. 427057 Herve Cruz MD Main Office [address] [facility] [address] [place] [address] 12/24/2023 10:04:27 12/24/2023 10:50:50 Adult health examination 229733713 Z00.00 referral provided for SOIL ANALYST , recom seasonal vaccines. Hyperlipidemia 10877334 E78.5 Continue current meds. Repeat fasting labs. Hypothyroidism 69593336 E03.9 continue current meds , repeat TFTs again due to weight gain. Osteoarthr itis of multiple joints 893699296 M15.9 Continue under pain management for cortisone injections and marijuana is used for pain control. Major depr ession single episode, in partial remission 02760456 F32.4 Stable on meds. F/u with psychiatri st Insomnia 476481440 F51.0 9 continue trazodone 150 mg qhs. Generalize d anxiety disorder 12671986 F41.1 Stable. BENJA 5 continue with psych for management of anxiety, depression and ADHD. Continue current meds. meds to be taken over by psych. Fibromyalgia 738673223 M 79.7 stable Glaucoma 30355582 H40.9 F/u with MG as scheduled. Herpes labialis 9224861 B00.1 uses valacyclov ir prn. Vitamin B1 2 deficiency (non anemic) 40515455 E53.8 stable by CBC in April. Attention deficit hyperactivity disorder, predominantly inattentive type 52173890 F90.0 Continue current med prescribed by psychiatrjuan diego contreras at [employer] [facility] Allergic a sthma without status asthmaticus 78885259 J45.909 ventolin prn, add montelukas t 10 mg along with otc antihistam fredy. Allergic rhinitis 831619 04 J30.9 continue otc antihistam fredy Needs infl uenza immunization 434226784 Z23 19 YEARS AND OLDER ONLY Screening for malignant neoplasm of cervix 560004420 Z12.4 H/o abnormal Pap Smear with cone biopsy. Body mass index 25-29 - overweight 567440592 E66.3 Z68.26 Continue working on low calorie diet and increase exercise activity. Goal weight is under 150 lbs. Administra tion of pneumococcal vaccine 84232918 Z23 Obstructiv e sleep apnea syndrome 48012675 G47.33 had sleep study done at [facility] , but has ragini with sleep med next door in January. Blood in urine 25459416 R31.9 repeat urinalysis 107507 Indra Stevens MD Main Office [address] [facility] [address] [place] [address] 01/15/2024 14:33:16 01/15/2024 14:54:26 Tick bite 86436192 W57.XXXA tick was completely removed this morning>wa s attached for <12hrs-estefania thema migrans appreciate d at site-no associated symptoms-w ill provide doxycyclin e and order tick born disease panel Insect bit e, nonvenomous, of neck 206017967 S10.96XA tick was completely removed this morning>wa s attached for <12hrs-estefania thema migrans appreciate d at site-no associated symptoms-w ill provide doxycyclin e and order tick born disease panel [id number] Herve Cruz MD Main Office [address] [facility] [address] [place] [address] 02/10/2024 14:56:32 02/10/2024 15:52:16 Constipation 62871769 K59.00 just had tsh done last month - normal has been using miralax qd x past 5 days most likely not d/t gi etiology since had normal colonoscop y 5 months ago - current sxs most likely d/t enlarged uterine fibroid (see below) tonight - take 1 bottle of mag citrate - start with 1/2 bottle when you get home, if no results in 4 hours, then take second half. if no results into tomorrow, then rec. use suppositor y or enema. rec. laxaclear (generic for miralax at [employer]) 1/2 - 1 scoop in 8 oz. of any fluid 1-2x/daily . rec. eat less bananas and drink more water. rec. eat more grapes, oranges, and pears. in future, if no bm x 3 days, then use 1-2 tabs of senna or dulcolax as needed. Left lower quadrant pain 761316698 R10.32 seen by produce weigher recently - pending abd/transv aginal u/s tomorrow d/t h/o fibroids Uterine leiomyoma 598653 05 D25.9 see above - h/o sx in past [id number] Herve Cruz MD Main Office [address] [facility] [address] [place] [address] 02/18/2024 13:19:03 02/18/2024 14:39:13 Constipation 95772761 K59.00 Unclear etiology. ? if fibroid related discomfort . Diverticul itis was ruled out by imaging and augmentin stopped after 2 days. Last colonoscop y was 5 months ago by Nayely Gamez and reportedly douglas fagan. Report is not available. TSH was borderline elevated in December. Pt. is on 75 mcg dose daily except for 1.5 tabs on Saturday and Saturday. P. is advised to stop miralax and dulcolax due to diarrhea. Abdominal xray . If constipati on reoccurs , pt. is advised to see GI. I will obtain and review last colonoscop y report from this year. Hypothyroidism 63847625 E03.9 Increase levothyrox ine to 88 mcg daily. Uterine fibroid polyp 25 1966242 D25.9 multiple fibroids. Pt. will readdress with the SOIL ANALYST. Health Concerns Section Related Observation LastModified by Organization Detai ls LastModified Time None Recorded Concern Status LastModified by Organization Details LastModified Time None Recorded Advance Directives Directive N: Payers Insurance Date Sequence Insurance Name Policy Number Policy Hernandez Covered Member ID Hernandez Member ID Guarantor Name 02/15/2024 2 [place] [facility] Tex Gimenez [id number] Tex Gimenez 05/27/2017 1 *SELF PAY* Carmella Stoll 12/01/2020 1 [facility] - HEALTH NET PLAN (MEDICAID HMO) [id number] Tex Gimenez [id number] Tex Gimenez 02/18/2024 1 [place] B-[place] [facility] [employer] [facility] Tex Gimenez [id number] Tex Gimenez 12/01/2020 1 [facility] (HMO) [id number] Tex Gimenez [id number] Tex Gimenez 12/01/2020 2 [place] [employer] Tex Gimenez [id number] Tex Gimenez 03/22/2024 2 [place] [facility] Tex Gimenez [id number] Tex Gimenez 12/01/2020 1 [facility] - MEDICAID ESSENTIAL (MEDICAID HMO) [id number] Tex Gimenez [id number] Tex Gimenez Notes Date Note Type Note Provider Name and Address Organization Details Recorded Time 10/01/2023 text/html ROS as noted in the HPI 58 year old female with ADHD, anxiety and hyperlipidemia c/o witnessed apneas. PT. was travelling with her daughter who is a registered nurse and was told she is having apneas and some snoring. Pt. reports fatigue, bmi is 26.3. No chronic headaches. Stop-Bang score is elevated at 5 points. Angel Eaton PA-C [address] [address], [place], [address], [facility] 10/01/2023 16:37:45 12/24/2023 text/html Medicare Annual Wellness VisitReported by PatientSocial/Behaviora l HistoryFor physical activity, patient reportsdoes not exercise on a regular basis. For fracture risk, patient reportsno history of fractures.Mental Status:For depression risk, patient reportssleep disturbances or insomniaandhistory of depressionbut reportsno significant changes in weight(anxiety and is currently in iop program for drinking alcohol in [place] for 3 months.). For concentration and memory, patient reportsforgetting words. For speech/motor difficulties, patient reportsno speech difficultiesandno difficulty writing/copying.Functio nal AbilityFor vision, patient reportsslow partial vision loss(glaucoma, very high prescription). For instrumental activities of daily living, patient reportsunable to do house work without assistancebut reportsable to manage medications with limited or no assistanceandable to manage money with limited or no assistance. For hearing, patient reportsno loss of hearing. For activities of daily living, patient reportsable to bathe with limited or no assistanceandable to toilet with limited or no assistance. For home safety, patient reportsworking smoke/co detectors,use of seatbelts, andno fire arms.ROS as noted in the HPI 58 year old female for annual Medicare wellness visit.Last colonoscopy in August with diverticulosis , no polyps removed. 5 year recall advised.Vaccines: up to date on Tdap. Had Prevnar 23 in 2009 and shingles vaccine in 2021.Mammogram normal last year. Pap Smear is overdue.Past h/o alcohol dependence with rehab. Pt. reports being sober for almost 3 years.BENJA and PHQ scores are 1, Pt. sees psychiatrist for major depression and anxiety d/o. Doing well. Continue antidepressants and trazodone for insomnia at 150 mg.ADHD. Takes adderall 4-5 days per week written by psych at [facility]. OA in multiple joints. Pt. sees [facility] periodically for cortisone injections. Pt. is using marijuana for pain management. Glaucoma is stable followed by [facility]. Herpes Simplex, uses valacyclovir almost monthly.Overdue for mammogram, PapSmear.Normal,bone density and Vit D level in 2022.Home sleep study was positive. Pt. has ragini next door to f/u in January. Angel Eaton PA-C [address] [facility] [address], [place], [address], [facility] 12/24/2023 12:44:12 01/15/2024 text/html ROS as noted in the HPI Tex is a 58yr old F who presents for tick bite. Completely removed tick this morning from left side of neck. Reports tick was attached for <12hrs. Noticed a erythematous bulls eye rash around site of tick bite. Denies of any associated symptoms. Sofya pearl, [facility] 01/27/2024 15:01:32 02/10/2024 text/html constipated for 12 days and painful just had tsh done last month - normal last colon - 6.24 - normal - next in 5 yrs no h/o constipation prior has had pellets on occasion last 2 wks so started miralax qd x past 5 days drinks a lot of water no new meds, foods apparently she has seen her produce weigher recently for LLQ pain - has pending u/s tomorrow Duy Eaton PA-C [address], [place], [address], [facility] 02/10/2024 19:56:25 02/18/2024 text/html ROS as noted in the HPI 58 year od female for [facility] f/u. Seen on 02/16/24 c/o diffused abdominal pain and no bowel movements for 2 weeks. Labs and urine test were unremarkable. CT of abd and pelvis showed no acute abnormality besides uterine fibroids. Augmentin was discontinued. Pt. reports low abdominal /pelvic pain began before constipation and pt had pelvic ultrasound ordered which showed fibroids somewhat smaller than measurements in 2019. Pt. continues with low abdominal discomfort and has been taking Miralax BID as well as added dulcolax 2 days ago . She reports having 3 small watery bowel movements today. NO fever or chills. NO nausea or vomiting. Angel Eaton PA-C [address], [place], [address], [facility] 02/18/2024 14:37:29 OBGyn Episode No OBEpisode recorded.
--- OUTSIDE RECORDS SUMMARY | 2025-01-11 14:34 | XMS_ITS | Clinical Summary ---
Author Organization [facility] Address [address] [facility] [address] [place] [phone] Phone Care Team Providers Care Subassembly Assembler Name Role Phone Sobeida Newby Primary Care [...] B [place] B Member Subscriber Plan / Payer (Ef fective 2019-Present) Name:Love Gimenez Member ID:[id number] Relation to Subscriber:Self Name:Love Gimenez Subscriber ID:[id number] Payer ID:[id number] Group ID:Not on file Type:Medicare Address: [address] [place], [place] [phone] [place] PART A & B [place] B [facility] & B [place] PART A & B [place] [facility] Care Teams Subassembly Assembler Relationship Specialty Start Date End Date Sobeida Newby PA [address] [address] PCP - General Gospel Singer 03/04/20 Additional Source Comments The information contained in this document represents components of the legal health record. It is not the complete legal health record.[facility]
== END 2025-01-11 12:04 | disposition home or self-care (01) ==
LOC: HO.HOS 11:23
PROVIDERS: Visit Provider Orthopaedic Surgery
DX: M17.0 Bilateral primary osteoarthritis of knee (principal)
CPT/HCPCS: 20610; 99213

== ENCOUNTER → 2025-01-11 11:22 | Outpatient (BNVA) | payer MEDICARE, MEDICAID, SELFPAY | PROVIDERS: Visit Provider Orthopaedic Surgery | DX: M17.0 Bilateral primary osteoarthritis of knee (principal) | CPT/HCPCS: 20610; 99212; J2003; J7318 ==